=== PATIENT | female | born 1945 | race Caucasian/White ===

== ENCOUNTER → 2017-07-06 09:31 | Outpatient (CLI) | payer MEDICARE, OTHER, SELFPAY ==
--- NOTE | 2017-07-06 09:37 | HPBI_ITS ---
MAMMOGRAPHY - BILATERAL SCREENING REASON FOR EXAM: Female, 72 years old. Routine annual screening examination. PERTINENT HISTORY: Mother with breast cancer. TECHNIQUE: Digital bilateral breast nathalia (3D mammographic acquisition) in the CC and MLO projections. 2-D mediolateral oblique (MLO) and craniocaudad (CC) views of both breasts were obtained. CAD: Full Field Digital Mammography with Computer Added Detection was performed. COMPARISON: Comparison is made with prior study dated June 24, 2016 and May 16, 2015. FINDINGS: Breast Composition: There are scattered areas of fibroglandular density. There are no dominant masses or suspicious calcifications. No other significant abnormalities are identified. There has been no significant change since the prior study. HPBI/SCREENING MAMM (CAD), BILAT IMPRESSION: Stable bilateral screening mammogram. Yearly follow-up mammogram recommended. (A) ASSESSMENT CATEGORY: BIRADS Category 1: Negative. A letter regarding these results will be sent to the patient by the facility within 30 days. Approximately 10% of breast cancers are not detected by mammography. A normal mammogram should not delay biopsy of a clinically suspicious abnormality. [id number] Electronically Signed: Benjamin Mijares MD at 13:25 EST Tel [phone], Service support ,
== END ==
PROVIDERS: Family Provider Family Medicine; PCP Family Medicine; Visit Provider Family Medicine
DX: Z12.31 Encounter for screening mammogram for malignant neoplasm of breast (principal)
CPT/HCPCS: 77063; 77067

== ENCOUNTER 2017-10-13 07:03 | Inpatient (IN) | payer MEDICARE, OTHER, SELFPAY ==
[2017-09-25 15:08] VITALS: BP 137/82; PULSE 68; RESP 16; TEMP 36.6; O2SAT 97; BMI 33.5
--- NOTE | 2017-09-25 15:14 | SDCEKG_ITS ---
Test Reason : Blood Pressure : / mmHG Vent. Rate : 049 BPM Atrial Rate : 049 BPM P-R Int : 126 ms QRS Dur : 070 ms QT Int : 416 ms P-R-T Axes : 011 -12 019 degrees QTc Int : 375 ms Marked sinus bradycardia with sinus arrhythmia Minimal voltage criteria for LVH, may be normal variant Abnormal ECG Confirmed by YOUSUF YAÑEZ, ROZINA ([id number]), newspaper copy editor AUTUMN BAUMAN ([id number]) on 09/28/2017 1:44:29 PM Referred By: Addison Barr Confirmed By:ROZINA TO MD
[2017-09-25 15:50] LABS: Hematocrit 40.1 % (37-47); Hemoglobin 12.6 g/dl (12.0-15.0); Mean Corp Hgb Conc 31.4 g/gl (32-36); Mean Corpuscular Hgb 30.7 pg (27.0-32.0); Mean Corpuscular Volume 97.8 fL (81-99); Platelet Count 240 K/mm3 (150-450); RBC Distribution Width CV 14.1 % (11.6-14.6); RBC Distribution Width SD 49.1 fl (35.1-43.9)
[2017-09-25 16:05] LABS: Scan Indicated on CBC? Y/N NO
[2017-09-25 16:15] LABS: Anion Gap 6 (5-15); BUN 17 mg/dL (7-18); BUN/Creat Ratio 25.6 RATIO (10-20); Chloride 107 mmol/L (98-107); Creatinine, Serum 0.66 mg/dL (0.55-1.02); EST Glomerular Filtration Rate 93 mL/min (>60); Est Glom Filt Rate - Afr Amer 113 mL/min (>60); Estimated Creatinine Clearance 42.68 ml/min; Glucose 97 mg/dL (74-106); Potassium 4.1 mmol/L (3.5-5.1); Sodium Level 142 mmol/L (136-145)
--- NOTE | 2017-10-09 10:37 | CASEMGMT ---
ISSAC RODRÍGUEZ Pre-OP phone call. Message left re: purpose of call and call back information for ISSAC RODRÍGUEZ. Carolyn CALDERAN RN ACM
[2017-10-13] VITALS (10 sets, daily range): BP systolic 93–123; BP diastolic 49–85; PULSE 44–64; RESP 14–18; TEMP 35.8–36.9; O2SAT 95–100; BMI 33.5
[2017-10-13] MEDS: Lactated Ringers 1,000 ML 999 ML IV (07:10)
[2017-10-13] MEDS: Scopolamine 1mg/72hr Patch 1 PATCH TD (07:15)
--- NOTE | 2017-10-13 07:35 | PCM.HP.STD ---
Problem List (1) Urinary incontinence Status: Chronic History of Present Illness Date of Admission: 10/13/17 Chief Complaint: Left hip pain with limited range of motion. The patient is a 72 year old F severe left hip pain and limited range of motion. She has had a right total hip replacement in 2016 and is done well. She did have an intraoperative fracture. Concerning her left hip. Patient does have difficulty with sleeping at night. She reports start up pain. She reports pain in her groin. Pain is a 9 out of 10 with motion and prolonged standing or walking. She has difficulty with stairs. She has difficulty with activities of daily living including tying her shoes. She is failed conservative measures including anti-inflammatories and activity modifications. To my office to discuss direct anterior total hip replacement. Past Medical History Past Medical History (Chronic Problems): Chronic Problems Urinary incontinence (Chronic) Allergies No Known Allergies Allergy (Verified 09/25/17 14:51) Home Medications: Ambulatory Orders Medication Instructions Recorded Ascorbic Acid [Vitamin C] 2,000 mg PO DAILY@0800 05/29/15 Multivitamin [Daily Multiple 1 each PO DAILY 05/29/15 Vitamin] Niacin [Niacin ER] 500 mg PO DAILY 05/29/15 Oxybutynin [Ditropan] 15 mg PO DAILY 05/29/15 Pyridoxine HCl [Vitamin B-6] 200 mg PO DAILY 05/29/15 Turmeric [Turmeric Root] 500 gm MC BID 05/29/15 Ubidecarenone [Coenzyme Q10] 200 mg PO DAILY 05/29/15 Cholecalciferol (Vitamin D3) 2,000 unit PO DAILY 09/25/17 [Vitamin D3] Krill/Om-3/Dha/Epa/Phospho/Ast 1 each PO DAILY 09/25/17 [Krill Oil 1,000 mg Softgel] Magnesium Oxide [Magnesium] 500 mg PO BID 09/25/17 Surgical History: total hip arthroplasty - right 2016 Psychiatric History: No pertinent psych hx Lives: With Family Smoking Status: Never smoker Tobacco Use: Non-smoker Alcohol: Rare Drugs: None Review of Systems Constitutional: Denies: Chills, Fever, Weight Change HEENT: Denies: Head Aches, Sinus Congestion, Sinus Drainage Cardiovascular: Denies: Chest Pain, Palpitations Respiratory: Denies: Cough, Shortness of breath at rest, Sputum production Gastrointestinal: Denies: Abdominal Pain, Nausea, Vomiting Genitourinary: Reports: Incontinence. Denies: Dysuria Musculoskeletal: Reports: Joint Pain Skin: Denies: Rash, Wounds Neurological: Denies: Numbness, Tingling, Focal weakness Psychiatric: Denies: Anxiety, Depression, Homicidal Ideations, Suicidal Ideations Hematologic/ Lymphatic: Denies: Easy Bruising, Easy Bleeding VTE Information - Inpt Only VTE Present on Admission: No VTE Mechan Device Prophylaxis: SCD's, Thigh High ELAINE Hose VTE Pharm Prophylaxis ordered?: Yes Objective: Left hip radiographs reveal complete loss of joint space, subchondral sclerosis and osteophyte formation of the left hip - Physical Exam General: Alert, Oriented x3, Cooperative HEENT: Atraumatic Neck: No JVD Lungs: Normal air movement, - - Nonlabored breathing Cardiovascular: Regular rate Abdomen: Non-Distended Extremities: - - Left lower extremity with limited range of motion. Pain with internal and external rotation. Minimal tenderness over the greater trochanter. 5 out of 5 hip flexion. Sensations intact light touch saphenous, superficial peroneal, deep peroneal tibial nerve distributions. 5 out of 5 dorsiflexion EHL and plantar flexion. Good distal pulses. Skin: No rashes, No breakdown Musculoskeletal: Tenderness - Left hip Neurological: Cranial nerves II-XII grossly intact Psych/Mental Status: Normal Affect Vital Signs Temp Pulse Resp BP Pulse Ox 98 F 68 16 137/82 H 97 09/25/17 15:08 09/25/17 15:08 09/25/17 15:08 09/25/17 15:08 09/25/17 15:08 Oxygen Delivery Method Room Air Weight: 189 lb Body Mass Index (BMI) 33.5 Assessment/Plan Left hip osteoarthritis severe Patient has severe left hip osteoarthritis. She failed conservative measures. She done well with a right total hip replacement. At this time she wishes to proceed with left total hip replacement. Risks and benefits of the procedure were discussed the patient including but not limited to blood loss, DVTs, PEs, neurovascular damage, infection, general risk of anesthesia including loss of life, dislocations and leg length discrepancies. Patient also has a history of intraoperative fractures which were discussed. At this time patient wishes to proceed with left total hip replacement. Postoperative plan is also been discussed the patient. Patient is able to sign informed consent.
[2017-10-13] MEDS: Acetaminophen 500 MG Tablet 1000 MG PO ×3 (07:50→21:19)
[2017-10-13] MEDS: Celecoxib 200 MG Capsule 400 MG PO (07:51)
[2017-10-13] MEDS: oxyCODONE HCl Cr 10 MG Tablet PO (07:51)
--- NOTE | 2017-10-13 09:25 | RAD_ITS ---
STUDY: X-RAY - PELVIS AND LEFT HIP REASON FOR EXAM: Female, 72 years old. Left hip replacement. TECHNIQUE: Radiological exam, hip, unilateral, with pelvis when performed; 1 view COMPARISON: None. FINDINGS: Intraoperative imaging provided for left hip replacement. RAD/Hip 1 view with Pelvis IMPRESSION: Intraoperative imaging provided for left hip replacement. Electronically Signed: Benjamin Mijares MD at 14:54 EDT Tel [phone], Service support ,
[2017-10-13] MEDS: Cefazolin 2 GM in 0.9% Normal Saline 100 ML IV (10:08)
--- NOTE | 2017-10-13 11:08 | PCM.OPRPT ---
Problem List (1) Urinary incontinence Status: Chronic Report of Operation Date of Procedure: 10/13/17 Pre-Operative Diagnosis: L hip primary OA Post-Operative Diagnosis: L hip primary OA Surgery/Procedure Performed:: L RICHA Description of Surgical Findings:: Stable hip with equal leg lengths senior capital markets specialist: Khalif Sommer Type of Anesthesia:: Spinal Anesthesiologist: Mahesh Rivera Special Medications: 2 g Ancef, 1 g TXA at incision, 1 g TXA closure, 10 mg Decadron, joint cocktail (5 mg Duramorph, 30 mL of 0.5% Ropivicaine, 1000 units of epinephrine, 30 mg of Toradol) Specimen's removed: Bony cuts Estimated Blood Loss (mL): 250 Fluids Replaced: 1900 ml crystalloid Description of Procedure: Components used: 1. Accolade 2 Maria R femoral stem size 4 127? 2. Maria R trident acetabular shell size 50 mm 3. Rowe X3 polyethylene 4. Maria R Biolox delta 36mm, -5mm femoral head Brief history operative indications: 72 yo f who failed conservative measures for their hip osteoarthritis. X-rays were consistent with osteoarthritis including joint space narrowing, osteophyte formation and subchondral cysts. Total hip replacement was discussed with the patient with risks and benefits including but not limited to blood loss, DVTs, PEs, neurovascular damage, dislocation, general risks of anesthesia including loss of life. Patient demonstrated an understanding medical clearance is obtained the patient was consented for surgery. Procedure: On the date of procedure the patient's L hip was marked in the preoperative area. Patient was then taken back to the operating room where anesthesia assumed control of the C-spine and airway and administered anesthetic. Patient was transferred to the operating table and placed in the supine position. The hips were placed at the break of the bed and a sacral bump was placed. The L lower extremity was then prepped out in a sterile fashion using chlorhexidine while the surgeon scrubbed. The PA was vital in the positioning of the patient. Upon reentering the room the L lower extremity was draped in the standard orthopedic fashion and the incision was marked. A timeout was called and everyone agreed upon the side, the site, the procedure be performed, antibody given, and patient's identity. At this time incision was made through skin, subcutaneous tissue, and fat down to fascia. The fascia was then incised and the TFL was retracted laterally. A retractor was placed on the lateral border of the femoral neck. Attention was directed to the inferior portion of the approach and all crossing vessels were identified and appropriately coagulated. A retractor was then placed on the medial portion of the femoral neck. The anterior capsule was then cleared of all soft tissue and then H shaped capsulotomy was made. The retractors were then placed inside the capsule. The femoral neck was identified and a cleanup cut was made. At this time a power corkscrew was used to remove the femoral head. Attention was then turned toward the acetabulum where the soft tissues were appropriately retracted and the acetabulum was sequentially reamed to 49 mm. A 50 mm cup was then selected and impacted into place. Acetabular liner was impacted into place and locking mechanism was verified. The position of the acetabular cup was then verified under live fluoroscopy. Attention was then turned to the femur. Soft tissue releases on the medial and lateral femoral neck were appropriately done, the leg was externally rotated and lateralized. A Vides retractor was placed medially and proximally to the greater trochanter this allowed appropriate visualization and exposure of the femoral canal. Rongeour was then used to remove excess lateral bone. A canal finder and entry broach were used to open the proximal canal. Once we verified we were down the femoral canal we subsequently broached up to a size 4 femur. The appropriate neck was placed in the previously selected head was trialed with a -5 mm neck. Traction was pulled and the hip was reduced with internal rotation. Once it was appropriately reduced and stability was checked. There was minimal shuck, equal leg lengths and appropriate stability with hyperextension and external rotation as well as with 90? flexion and internal rotation. Fluoroscopy was then also used to verify the position of the components and leg lengths using the contralateral side for comparison. The trial components were then dislocated the proximal femur was again exposed and the components were removed from the wound. The final components were verified and opened. The wound was copiously irrigated out with normal saline. The acetabulum was checked for any residual debris. The final components were placed and impacted. Traction and internal rotation were again used to reduce the hip. After adequate reduction the hip remained stable with appropriate leg lengths. The final components were once again checked with live fluoroscopy and were found to be satisfactory. The wound was then copiously irrigated with normal saline once more, and hemostasis was obtained. Closure was then done using #1 Vicryl runner to close the fascia. A 2-0 vicryl interuppted sutures were used to close the subcutaneous skin. A 3-0 Monocryl and Steri-Strips were used for final skin closure. A Silverlon dressing was placed. Patient was awakened by anesthesia and transferred to the [facility]. Patient was then transferred to the PACU for recovery. Postoperative plan: Patient will get 24 hours postop antibiotics. Patient will get in-house physical therapy and will be weight-bear as tolerated. Patient will follow up in office in 2 weeks for a wound check and x-rays. During the course of the procedure the physician hospital nursing assistant played a vital role. His intimate knowledge of my steps in the procedure aided in safe and expedient completion of the procedure. The PA played a vital rolls in positioning particularly in obtaining the appropriate positioning of the sacral bump. The PA was also vital in the retraction of soft tissues during the exposure and especially the femoral work as this is a vital part of the procedure to prevent complications and fractures. The PA was also vital and protecting soft tissues during times of bony cuts and reaming. He also played a vital role in closure with my direct supervision. The PA was also important during reduction and dislocation of the joint and trials intraoperatively. Grafts/Implants Used: Rowe - Complications none - Admit VTE Documentation VTE Present on Admission: No VTE Mechan Device Prophylaxis: SCD's, Thigh High ELAINE Hose VTE Pharm Prophylaxis ordered?: Yes
--- NOTE | 2017-10-13 12:00 | RAD_ITS ---
STUDY: X-RAY - PELVIS AND LEFT HIP REASON FOR EXAM: Female, 72 years old. Left] placement. TECHNIQUE: Radiological exam, hip, unilateral, with pelvis when performed; 2 or 3 views. COMPARISON: None. FINDINGS: The patient is status post left total hip replacement. There is good alignment. Postoperative soft tissue changes. RAD/Hip Min 2 Views (Portable) IMPRESSION: Status post left total hip replacement. There is good alignment. Postoperative soft tissue changes. Electronically Signed: Benjamin Mijares MD at 15:29 EDT Tel [phone], Service support ,
[2017-10-13] MEDS: Niacin SA 500 MG Tablet PO (14:20)
[2017-10-13] MEDS: Famotidine 20 MG Tablet PO (14:20)
[2017-10-13] MEDS: Lactated Ringers 1,000 ML 125 ML IV ×2 (14:21→21:22)
[2017-10-13] MEDS: Aspirin 325 MG Tablet PO (14:21)
[2017-10-13] MEDS: Cefazolin 1 GM/50 ML BAG IV (17:20)
[2017-10-13] MEDS: Senna/Docusate Sodium 1 Tablet 2 TABLET PO (21:20)
[2017-10-13] MEDS: Magnesium Oxide 400 MG Tablet PO (21:20)
[2017-10-14] MEDS: Cefazolin 1 GM/50 ML BAG IV (02:11)
[2017-10-14 04:19] VITALS: BP 111/56; PULSE 56; RESP 16; TEMP 36.7; O2SAT 97
[2017-10-14 05:49] LABS: Hemoglobin 10.4 g/dl (12.0-15.0); Mean Corp Hgb Conc 30.6 g/gl (32-36); Mean Corpuscular Hgb 30.4 pg (27.0-32.0); Mean Corpuscular Volume 99.4 fL (81-99); Mean Platelet Vol. 9.9 fl (6.2-12.0); Platelet Count 182 K/mm3 (150-450); RBC Distribution Width CV 14.1 % (11.6-14.6); RBC Distribution Width SD 49.8 fl (35.1-43.9); Red Blood Count 3.42 M/mm3 (4.2-5.4); White Blood Count 8.8 K/mm3 (4.4-11.0)
[2017-10-14 06:00] LABS: Anion Gap 5 (5-15); BUN 11 mg/dL (7-18); BUN/Creat Ratio 15.2 RATIO (10-20); Calcium,Total 8.3 mg/dL (8.5-10.1); Chloride 112 mmol/L (98-107); Creatinine, Serum 0.72 mg/dL (0.55-1.02); EST Glomerular Filtration Rate 85 mL/min (>60); Est Glom Filt Rate - Afr Amer 102 mL/min (>60); Estimated Creatinine Clearance 42.68 ml/min; Glucose 137 mg/dL (74-106); Potassium 4.3 mmol/L (3.5-5.1); Sodium Level 147 mmol/L (136-145)
[2017-10-14 06:06] LABS: Scan Indicated on CBC? Y/N NO
[2017-10-14] MEDS: oxyCODONE 5 MG Tablet PO ×3 (06:16→14:19)
[2017-10-14] MEDS: Acetaminophen 500 MG Tablet 1000 MG PO ×2 (06:16→14:04)
--- NOTE | 2017-10-14 07:16 | PN.ORTHO_ITS ---
Subjective: The patient was sitting in bedside chair upon examination. Patient denies any chest pain, shortness of breath, dizziness, lightheadedness, nausea or vomiting , or calf pain. Pain is controlled on medications. No adverse overnight events. Overall patient is doing well. She does report soreness in the left thigh region. Patient has outpatient physical therapy scheduled. Objective: Vital signs stable and afebrile. Patient is able to plantarflex and dorsiflex actively. Sensation is intact to light touch to saphenous, sural, superficial and deep peroneal, and tibial distribution. Dressing is with minimal drainage Negative Homans bilaterally, negative signs and symptoms of DVT. - Physical Exam General: Alert, Oriented x3, Cooperative, No apparent distress Vital Signs Temp Pulse Resp BP Pulse Ox 98.1 F 56 L 16 111/56 L 97 10/14/17 04:19 10/14/17 04:19 10/14/17 04:19 10/14/17 04:19 10/14/17 04:19 Oxygen Delivery Method Room Air Weight: 85.7 kg Body Mass Index (BMI) 33.5 Intake and Output for Last 24 Hours 10/12/17 10/13/17 10/14/17 23:59 23:59 23:59 Intake Total 3425 / 3425 1575 / 1575 Output Total 1200 / 1200 Balance 2225 / 2225 1575 / 1575 Laboratory Tests Past 24 Hrs 10/14/17 10/14/17 05:06 05:06 WBC 8.8 RBC 3.42 L Hgb 10.4 L Hct 34.0 L MCV 99.4 H MCH 30.4 MCHC 30.6 L RDW 14.1 RDW Differential 49.8 H Plt Count 182 MPV 9.9 Sodium 147 H Potassium 4.3 Chloride 112 H Carbon Dioxide 30.0 Anion Gap 5 BUN 11 Creatinine 0.72 Estim Creat Clear Calc 42.68 Est GFR (MDRD) Af Amer 102 Est GFR (MDRD) Non-Af 85 BUN/Creatinine Ratio 15.2 Glucose 137 H Calcium 8.3 L Medical Necessity - Tobacco Use Smoking Status: Never smoker Tobacco Use: Non-smoker Assessment/Plan 1. S/P left direct anterior total hip arthroplasty POD #1 2. Continue Pain Medications: Tylenol and OxyIR 3. DVT Prophylaxis: Aspirin 325 mg twice daily 4. PT/OT: Weightbearing as tolerated 5. H & H: 10.4/34.0, asymptomatic 6. Encouraged Incentive Spirometry 7. Disposition: Plan is for possible discharge home today if patient tolerates physical therapy and pain continues to be well controlled. Prescriptions will be E scribed to [facility]. Patient will follow-up per postop instructions.
--- NOTE | 2017-10-14 07:24 | PCM.DC.THR ---
Discharge Diet: No Restrictions Discharge Activity: May Not Drive - while taking narcotic pain medications. May shower in (days): 1 - Turned dressing away from water Ice area for (Minutes): 20 - Every 1-2 hours while awake Weight Bearing Status: Weight bearing as tolerated Elevate: Operative Extremity Additional Activity Instructions:: Wear elastic stockings for 2 weeks. DO NOT use alcohol with narcotic pain medication. DO NOT make important decisions while taking narcotic medication. If you have problems with taking your medication (rash, itching, nausea, etc.) call the office at once. Call your doctor if your incision/area has: Increased Pain/ Swelling, Increased Redness, Foul Smelling Discharge Call your doctor if you observe: Fever of 101 or Higher Remove Dressing in (days):: 4 - Okay to remove on October 18, 2017 Additional Instructions: Follow [facility] postop instructions Do not take vitamins and supplements for [address] washcloth between skin fold near incision to keep clean and dry until incision is well-healed Allergies/Adverse Reactions: Allergies No Known Allergies Allergy (Verified 09/25/17 14:51) Medications to take at Discharge Ascorbic Acid [Vitamin C] 2,000 mg PO DAILY@0800 05/29/15 Multivitamin [Daily Multiple Vitamin] 1 each PO DAILY 05/29/15 Niacin [Niacin ER] 500 mg PO DAILY 05/29/15 Oxybutynin [Ditropan] 15 mg PO DAILY 05/29/15 Pyridoxine HCl [Vitamin B-6] 200 mg PO DAILY 05/29/15 Cholecalciferol (Vitamin D3) [Vitamin D3] 2,000 unit PO DAILY 09/25/17 Magnesium Oxide [Magnesium] 500 mg PO BID 09/25/17 Acetaminophen [Tylenol] 1,000 mg PO Q8 #90 tab 10/14/17 Aspirin 325 mg PO BIDCM #30 tab 10/14/17 Famotidine [Pepcid] 20 mg PO DAILY #30 tab 10/14/17 Oxycodone [Oxyir] 5 - 10 mg PO Q4H PRN PRN 5 Days #60 tablet 10/14/17 Senna/Docusate Sodium [Senokot-S] 2 tab PO BID #20 tab 10/14/17 The following prescriptions were given: Oxycodone [Oxyir] 5 - 10 mg PO Q4H PRN PRN 5 Days #60 tablet PRN Reason: Mod-Severe Pain (4-03/03) Acetaminophen [Tylenol] 1,000 mg PO Q8 #90 tab Famotidine [Pepcid] 20 mg PO DAILY #30 tab Aspirin 325 mg PO BIDCM #30 tab Senna/Docusate Sodium [Senokot-S] 2 tab PO BID #20 tab Primary Care Physician: Lisy Rangel MD [Primary Care Provider] - Please Follow Up With: [facility] When: 10/16/17 @ 11:00 am Please Follow Up With: Rogers Daigle MD When: 10/26/17 @ 11:00 am
[2017-10-14 08:20] VITALS: BP 109/55; PULSE 66; RESP 18; TEMP 37.1; O2SAT 96
[2017-10-14] MEDS: Aspirin 325 MG Tablet PO (08:25)
[2017-10-14] MEDS: Ascorbic Acid 500 MG Tablet 2000 MG PO (08:25)
[2017-10-14] MEDS: Multivitamins,Therapeutic Tablet 1 TABLET PO (08:26)
[2017-10-14] MEDS: Niacin SA 500 MG Tablet PO (10:05)
[2017-10-14] MEDS: Famotidine 20 MG Tablet PO (10:05)
[2017-10-14] MEDS: Tolterodine Tartrate 4 MG CAP.SA PO (10:05)
[2017-10-14] MEDS: Magnesium Oxide 400 MG Tablet PO (10:05)
[2017-10-14] MEDS: Senna/Docusate Sodium 1 Tablet 2 TABLET PO (10:06)
--- NOTE | 2017-10-14 11:07 | CASEMGMT ---
ISSAC RODRÍGUEZ Face to Face with patient for initial transition planning/care coordination assessment. RN MARCOS introduced self and role at [facility]. Patient sitting in chair, alert and oriented. Patient willing to participate in assessment and is able to answer all questions appropriately. Care providers, pharmacy, and demographics verified. See link attached. Patient wishes to discharge home and is setup with outpatient therapy at [facility] with providing transportation . Patient states she has no further needs or concerns at this time. CM to follow for discharge planning needs that may arise. Disposition Plan: Patient to discharge home with outpatient therapy, family support, and follow-up plans in place.
[2017-10-14 14:06] VITALS: BP 106/55; PULSE 77; RESP 18; TEMP 36.7; O2SAT 98
--- NOTE | 2017-10-14 14:12 | CHAPLAIN ---
Type of Pastoral Visit _x__ Initial Visit ___ Follow-up Visit ___ On-call Visit ___ General Patient Visit ___ Spiritual Assessment ___ Family Conference ___ Bereavement ___ Rapid Response ___ Code Blue ___ Other (describe below) Pastoral Care Referral From _x__ Patient ___ Family ___ Nurse ___ Physician ___ Tailor Fitter ___ Statistical Consultant ___ Other (describe below) Sacrament/Intervention _x__ Active listening ___ Anointing ___ Roman Catholic ___ Bereavement ___ Communion ___ Alyssia exploration ___ ___ Life review _x__ Prayer ___ Reconciliation ___ Sacrament of Sick ___ Supportive presence ___ Wedding ___ Other (describe below) Pastoral Comments
--- NOTE | 2017-10-14 15:52 | NURSING ---
PT'S UNABLE TO GET SCRIPT FILLED AT [facility] BECAUSE THEY ONLY HAD 18 OXYIR AND THEY WOULD NOT BE ABLE TO COMPLETE THE ORDER- CALLED [facility] AND TOLD THEM- DR HURST AND FLO Lamb ARE BOTH SCRUBBED AND IN SURGERY FOR THE NEXT 2 HRS- THEY WILL TALK WITH PT AFTER SURGERY AND PT WOULD LIKE SCRIP SENT TO [facility] -
== END 2017-10-14 15:53 | disposition home or self-care (01) | DRG 470 ==
LOC: MS3 07:04
PROVIDERS: Orthopaedic Surgery; Admitting Provider Specialist; Family Provider Family Medicine; PCP Family Medicine; Visit Provider Specialist
PROC: 0SRB04Z Replacement of Left Hip Joint with Ceramic on Polyethylene Synthetic Substitute, Open Approach (ICD-10-PCS; CPT 27284; principal; 2017-10-13 09:00)
DX: M16.12 Unilateral primary osteoarthritis, left hip (principal); R32 Unspecified urinary incontinence; Z96.641 Presence of right artificial hip joint; Z79.899 Other long term (current) drug therapy
CPT/HCPCS: 36415; 73501; 73502; 76000; 80048; 85027; 87081; 97162; 97165; 97530; 97535; 99251; C1776; J7120; G0463

== ENCOUNTER → 2018-10-11 | Outpatient (CLI) | payer MEDICARE, OTHER, SELFPAY ==
[2018-10-11 14:10] VITALS: BMI 33.5
[2018-10-11 15:43] LABS: Hematocrit 41.3 % (37-47); Hemoglobin 13.1 g/dl (12.0-15.0); Mean Corp Hgb Conc 31.7 g/gl (32-36); Mean Corpuscular Volume 91.4 fL (81-99); Mean Platelet Vol. 10.7 fl (6.2-12.0); Platelet Count 308 K/mm3 (150-450); RBC Distribution Width CV 14.4 % (11.6-14.6); RBC Distribution Width SD 48.1 fl (35.1-43.9); Red Blood Count 4.52 M/mm3 (4.2-5.4); Scan Indicated on CBC? Y/N NO; White Blood Count 11.3 K/mm3 (4.4-11.0)
[2018-10-11 16:16] LABS: ALB/GLOB Ratio 0.8 RATIO (0.9-2.4); AST(SGOT) 34 U/L (15-37); Alanine Aminotransfer ALT/SGPT 18 U/L (13-56); Albumin, Serum 3.4 g/dL (3.2-5.0); Alkaline Phosphatase 103 U/L (45-117); Anion Gap 7 (5-15); BUN 8 mg/dL (7-18); Chloride 105 mmol/L (98-107); Creatinine, Serum 0.72 mg/dL (0.55-1.02); EST Glomerular Filtration Rate 84 mL/min (>60); Est Glom Filt Rate - Afr Amer 102 mL/min (>60); Globulin 4.2 g/dL (2.2-4.2); Glucose 112 mg/dL (74-106); Potassium 3.4 mmol/L (3.5-5.1); Protein, Total 7.6 g/dL (6.4-8.2); Sodium Level 142 mmol/L (136-145)
== END | disposition home or self-care (01) ==
PROVIDERS: Family Provider Family Medicine; PCP Family Medicine; Referring Provider Surgery; Visit Provider Surgery
DX: R10.9 Unspecified abdominal pain (principal)
CPT/HCPCS: 80053; 85027

== ENCOUNTER → 2018-10-12 | Outpatient (CLI) | payer MEDICARE, OTHER, SELFPAY ==
[2018-10-11 14:10] VITALS: BMI 33.5
--- NOTE | 2018-10-12 16:18 | CT_ITS ---
STUDY: CT ABDOMEN AND PELVIS WITH CONTRAST REASON FOR EXAM: Female, 73 years old. Abdominal pain, umbilical hernia times years RADIATION DOSAGE (If Supplied By Facility): CTDIvol = ( 17.79 ) mGy, DLP = ( 1172.41 ) mGycm TECHNIQUE: Transaxial images were obtained from the dome of the diaphragm to the symphysis pubis without oral contrast. 100 IV/Oral Isovue 300 was administered. Sagittal and coronal images were reconstructed. Individualized dose optimization techniques were used for this CT. COMPARISON: None. FINDINGS: There is a pleural-based 3 mm right lower lobe nodule image 1 of series 4. The visualized portions of the heart are within normal limits. There are multiple scattered hepatic hypodensities measuring up to 1.1 cm. Normal gallbladder and extrahepatic biliary system. Normal spleen. Normal pancreas. Normal bilateral adrenal glands. There is a 3.5 x 3.1 cm right renal cyst. Normal left kidney. Normal visualized stomach. Normal small intestine. There is a cecal mass measuring approximately 6.4 x 6.8 x 6.8 cm. There are multiple adjacent enlarged mesenteric nodes. There is sigmoid diverticulosis with no evidence of associated diverticulitis. There is non-visualization of the appendix. There are calcified plaques of the abdominal aorta. Normal inferior vena cava. There are scattered shotty retroperitoneal nodes. Normal urinary bladder. There is a tiny amount of free fluid in the deep right pelvis. Evaluation of pelvic organs is limited due to scanning artifact caused by bilateral hip implants. There is a dumbbell shaped mass of the anterior pelvis extending into the left paraumbilical subcutaneous soft tissues. This mass contains fat, and measures approximately 8.7 x 5.4 x 7.9 cm. There are large bilateral fat-containing inguinal hernias. There is a minimal grade 1 anterolisthesis of L4 relative to L5. Bilateral hip replacements are noted. CT/Abdomen/Pelvis WITH Contrast IMPRESSION: 1. Cecal mass measuring approximately 6.4 x 6.8 x 6.8 cm. Findings are highly suspicious for malignancy. There are multiple adjacent enlarged mesenteric nodes. 2. There is a dumbbell shaped 3. mass of the anterior pelvis extending into the left periumbilical subcutaneous soft tissues. This mass contains fat and measures approximately 8.7 x 5.4 x 7.9 cm. This may represent indurated omental fat. 4. There are multiple scattered hepatic hypodensities measuring up to 1.1 cm, raising the suspicion of metastatic disease. 5. There are scattered shotty retroperitoneal nodes. 6. There is a tiny amount of free fluid in the deep right pelvis. 7. Bilateral hip implants. Minimal grade 1 anterolisthesis of L4 relative to L5. 8. Large bilateral fat-containing inguinal hernias. Electronically Signed: Judson Pearson MD at 17:11 EDT , Service support ,
== END | disposition home or self-care (01) ==
LOC: CT 16:17
PROVIDERS: Family Provider Family Medicine; PCP Family Medicine; Referring Provider Surgery; Visit Provider Surgery
DX: R10.9 Unspecified abdominal pain (principal); R19.00 Intra-abdominal and pelvic swelling, mass and lump, unspecified site
CPT/HCPCS: 74177; Q9967

== ENCOUNTER 2018-10-15 06:45 | Day surgery (SDC) | payer MEDICARE, OTHER, SELFPAY ==
[2018-10-11 14:10] VITALS: BMI 33.5
[2018-10-15] VITALS (11 sets, daily range): BP systolic 95–141; BP diastolic 43–80; PULSE 71–85; RESP 16; TEMP 36.1–36.8; O2SAT 92–100; BMI 27.3
--- NOTE | 2018-10-15 | IMM_PTH ---
PATIENT: TANNER DAVALOS LOC: EN U#:[id number] AGE/SX: 73/F ROOM: RE10/15/[address]: Dr. Magdiel Denny MD : 1945 BED: DIS: 10/15/2018 SPEC #: [id number] RECD: 10/19/18 11:47 STATUS: WALI REQ #: [id number] CRUZ: 10/15/18 00:[address]: Magdiel Denny DEPT: IMMUNOHISTOCHEMISTRY RECD BY: Jennifer Olguin ENTERED: 10/19/18 11:49 SP TYPE: IMMUNO OTHR DR: Dr. Lisy Rangel MD Tissues: A - Cecum, NOS Procedures: Synapto (add) CD56 (add) CEA (add) CHROMO (add) CK19 (add) CK20 (add) CK7 (add) CK8 (add) KI-67 (add) P53 (add) Vimentin (add) NEUROFIL (add) Pankeratin (initial) CDX2 (add) NSE (add) PHYSICIAN & [place] [id number] SPECIMEN INFORMATION: Tissue Source: A - Cecal mass Clinical Info: Abdominal mass right upper quadrant Specimen Number: [id number] CPT code: 26292, 22986 x14 METHODOLOGY: Deparaffinized sections of prefer/formalin-fixed tissue or PAP/DQ stained slides are incubated with monoclonal/polyclonal antibodies/oligonucleotide probes. Localization is made via biotin free immunoperoxidase method. Appropriate controls are performed and reacted as expected. Results on target cell population are indicated in the following table: RESULTS: ANTIBODY / CLONE RESULT Block A AE1-3 (AE1/AE3/PCK26) positive CK7 (OV-TL12/30) negative CK8 (86ywizW57) positive CK20 (KS20.8) positive, focal Vimentin (V9) negative CK19 (A53-B/A2.26) positive CD56 (123C3.D5) positive Chromo (LK2H10) positive Synapto (polyclonal) positive Neurofil (2F11) negative NSE Neuron Specific Enolase positive CDX2 ([id number]) positive Ki-67 (30-9) positive, >50% CEA (11-7/TF-3HB-1) positive P53 (DO-7) positive, 80%, moderate intensity These tests were developed and their performance characteristics determined by [facility]. They may not have been cleared or approved by the U.S. Food and Drug Administration. The FDA has determined that such clearance or approval is not necessary. INTERPRETATION: A. Cecal mass, biopsy: Neuroendocrine carcinoma. AM:steve 10/20/18 Comment: An upper GI primary including pancreas is a possibility. Clinical correlation is necessary.
--- NOTE | 2018-10-15 | COLBX_PTH ---
PATIENT: TANNER DAVALOS LOC: EN U#:[id number] AGE/SX: 73/F ROOM: RE10/15/[address]: Dr. Magdiel Denny MD : 1945 BED: DIS: 10/15/2018 SPEC #: [id number] RECD: 10/15/18 12:24 STATUS: WALI JANE #: [id number] CRUZ: 10/15/18 00:[address]: Magdiel Denny DEPT: SURGICAL PATHOLOGY RECD BY: Ty Hyaes ENTERED: 10/15/18 12:25 SP TYPE: COLON BX OTHR DR: Dr. Lisy Rangel MD Tissues: A - Cecum, NOS B - COLON BIOPSY Procedures: Surgery Specimen Level IV HEADER OPERATION: Colonoscopy (MOD) PRE-OP DIAGNOSIS: Ventral incisional hernia, abdominal mass right upper quadrant TISSUE SUBMITTED: A - Cecal mass, B - Polyp hepatic flexure MICROSCOPIC DIAGNOSIS A. Cecal mass, biopsy: Neuroendocrine carcinoma. See comment. B. Colonic polyp at hepatic flexure, biopsy: Fragments of tubular adenoma. AM:steve 10/19/18 COMMENT A. Immunohistochemistry ([id number]) supports the above diagnosis. A lower gastrointestinal primary is favored. Clinical correlation is suggested. MICROSCOPIC DESCRIPTION Slides are reviewed. GROSS DESCRIPTION A - Received in fixative is one container labeled with the patient's name and designated cecal mass. The specimen consists of multiple irregular fragments of light gtz soft tissue that in aggregate measure 1.5 x 0.5 x 0.1 cm. The specimen is totally submitted in one cassette. B - Received in fixative is one container labeled with the patient's name and designated hepatic flexure. The specimen consists of multiple irregular fragments of light gtz soft tissue that in aggregate measure 0.6 x 0.6 x <0.1 cm. The specimen is totally submitted in one cassette. / AM:steve 10/15/18 TC:0 CPT: 47291 x2
--- NOTE | 2018-10-15 05:32 | PCM.HP.BLA ---
Problem List (1) Abdominal mass, right upper quadrant Status: Acute History and Physical Date of Admission: 10/15/18 MR#: [id number] Acct: [id number] Name: TANNER DAVALOS Rep #: [id number] : 1945 Provider: Magdiel Denny MD Age/Sex: 73/F Location: [facility] [place] Status: Signed with Addenda ADDENDUM by Magdiel Denny MD on 10/13/18 at 1643 Addendum entered and electronically signed by Magdiel Denny MD 10/13/18 16:43: October 13, 2018 On this patient's office visit I detected what I thought was a right mid abdominal mass. She certainly has a sizable incarcerated incisional ventral periumbilical hernia. But my clinical exam detected something on the right. I recommended a CT scan. This demonstrates a significant amount of omentum incarcerated within the ventral hernia however there appears to be a mass within the cecum. The patient had presented to me in anticipation of repairing her ventral hernia. We have discussed with her recommendations to convert to performing a bowel prep preparation and performing a colonoscopy with possible biopsy or polypectomy as indicated. She has had an opting to ask and have questions answered. We will schedule and expedite her care as appropriate. Magdiel Denny M.D., F.A.C.S. Intake Allergies No Known Allergies Allergy (Verified 10/11/18 14:05) Medications Ascorbic Acid [Vitamin C] 2,000 mg PO DAILY@0800 05/29/15 [History Confirmed 10/11/18] Multivitamin [Daily Multiple Vitamin] 1 ea PO DAILY 05/29/15 [History Confirmed 10/11/18] Cholecalciferol (Vitamin D3) [Vitamin D3] 2,000 unit PO DAILY 09/25/17 [History Confirmed 10/11/18] Aspirin 325 mg PO BIDCM #30 tab 10/14/17 [Rx] Oxycodone [Oxyir] 5 - 10 mg PO Q4H PRN PRN 5 Days #60 tab 10/14/17 [Rx Confirmed 10/11/18] Senna/Docusate Sodium [Senokot-S] 2 tab PO BID #20 tab 10/14/17 [Rx Confirmed 10/11/18] oxybutynin chloride 5 mg tablet 5 mg PO BID tab 10/11/18 [History Confirmed 10/11/18] Assessment & Plan Problems 1. Irreducible ventral incisional hernia K43.0 2. Abdominal mass, right upper quadrant R19.01 Plan - Magdiel Denny MD 73-year-old female. Her clinical findings suggest a significantly incarcerated ventral incisional hernia at the umbilicus. Findings would suggest a significant amount of incarcerated omentum with thinning of the umbilical skin and slight erythema but no signs of overt cellulitis or infection. On clinical exam I am detecting a mass in the right abdomen. I cannot decipher whether this is simple renal enlargement or possible liver less likely bowel. I am recommending that we obtain a complete metabolic profile and a CBC. I would like to obtain a CT scan of the abdomen pelvis. We will expedite that for her. I would then like her to return the office. I definitely recommend repair of her incarcerated ventral hernia. This may be able to be accomplished to a direct approach but could require resection of the incarcerated tissue and then conversion to a laparoscopic approach. I have had an opportunity to discuss the potential but will have the patient return to the office subsequent to her CT for final planning. I very much appreciate the kind opportunity of assisting with her surgical care CC: Dr. Lisy Denny M.D., F.A.C.S. Orders Orders: Comprehensive Metabolic Profil 10/11/18 R10.9 Abdomen/Pelvis WITH Contrast 10/12/18 R10.9, R19.00 CBC-Complete Blood Cnt No Diff 10/11/18 R10.9 10/13/18 1643 <Electronically signed by Magdiel Denny MD> Date Magdiel Denny MD cc: Lisy Rangel MD ~* Signed Intake Vital Signs 10/11/18 Body Mass Index (BMI) 33.5 10/11/18 Height 5 ft 4 in 10/11/18 Weight: 169 lb 10/11/18 Body Mass Index (BMI) 29.0 10/11/18 Blood Pressure 127/78 H 10/11/18 Blood Pressure Location Rt brachial 10/11/18 Blood Pressure Position Sitting 10/11/18 Respiratory Rate 18 10/11/18 Pulse Rate 93 10/11/18 Pulse Source Monitor 10/11/18 Temperature 98.1 F 10/11/18 Temperature Source Oral 10/11/18 Pulse Ox 93 10/11/18 Oxygen Delivery Method room air Intake Visit Reasons: Umbilical Hernia - Self Ref Chief Complaint: postop [employer] Required: No Is patient in pain?: No Allergies No Known Allergies Allergy (Verified 10/11/18 14:05) Medications Ascorbic Acid [Vitamin C] 2,000 mg PO DAILY@0800 05/29/15 [History Confirmed 10/11/18] Multivitamin [Daily Multiple Vitamin] 1 ea PO DAILY 05/29/15 [History Confirmed 10/11/18] Cholecalciferol (Vitamin D3) [Vitamin D3] 2,000 unit PO DAILY 09/25/17 [History Confirmed 10/11/18] Aspirin 325 mg PO BIDCM #30 tab 10/14/17 [Rx] Oxycodone [Oxyir] 5 - 10 mg PO Q4H PRN PRN 5 Days #60 tab 10/14/17 [Rx Confirmed 10/11/18] Senna/Docusate Sodium [Senokot-S] 2 tab PO BID #20 tab 10/14/17 [Rx Confirmed 10/11/18] oxybutynin chloride 5 mg tablet 5 mg PO BID tab 10/11/18 [History Confirmed 10/11/18] PFSH Medical History Urinary incontinence (Chronic) Umbilical hernia (Acute) irregular bowel patterns (Acute) Surgical History History of total bilateral knee replacement (Acute) Family History Mother Breast cancer Social History Smoking Status: Never smoker alcohol intake: never substance use type: does not use HPI HPI HPI: TANNER DAVALOS, is a 73 F who presents to the office today for surgical consultation regarding an umbilical hernia. The patient states that she is self-referred. It is been present for at least 2 years. She presumes that it is an umbilical hernia. She does go on to describe that in [address] Iker Franco for a right hip replacement and then 2017 she had a left hip replacement performed by Dr. Daigle.. Since that time she has had sciatica and L2-3-4 and 5 impingement. She has been treated by Dr. Aviles pain specialty. She had some problems with bowel control and urinary control. Her most recent colonoscopy was June 2016 and there was biopsy of hepatic flexure lesion performed by Dr. Christian Emerson and that was fragments of hyperplastic polyp. She does remember that she had a small transverse incision at the umbilicus but she thought that was simply for a fatty mass. She does not have good recollection regarding that procedure. She denies nausea or vomiting or fever or chills or sweats or bright red blood per rectum or melena. She has not had any drainage at the umbilicus. HPI HPI HPI: TANNER DAVALOS, is a 73 F who presents to the office today for ROS General General: Yes weight change and fatigue; no appetite, colon cancer, breast cancer or weakness HEENT HEENT: No difficulty swallowing, eye injury, eye surgery, swollen glands or hoarseness Endo Endocrine: No thyroid disease, diabetes mellitus, thyroid cancer, Hair loss, heat intolerance or cold intolerance Skin Skin: No rash or changing moles Breast Breast: No left breast lump, right breast lump, nipple discharge, breast pain, abnormal mammogram, abnormal US or breast enlargement Musc Musculoskeletal: Yes arthritis; no back problems, rheumatoid arthritis, gout or joint pain Cardio Cardiovascular: No murmur, pacemaker, heart disease, atrial fibrillation, high blood pressure, heart attack, heart stent, palpitations, shortness of breat with exertion or chest pain Psych Psychiatric: No depression, anxiety or hearing voices Resp Respiratory: No shortness of breath, No sleep apnea, No cough, No COPD, No asthma, No emphysema, No wheezing Gastro Gastrointestinal: Yes abdominal pain, Yes nausea or vomiting, Yes diarrhea, No constipation, No blood in stool, No acid reflux, No hemorrhoids, No ulcers, No gallbladder problem, No black,tarry stools Marc Hematologic: No blood thinners, No blood disorders, No bleeding, No anemia, No blood clots Neuro Neurologic: No system reviewed and no additional complaints, except as docu, No as per HPI, No abnormal walking, No abnormal hearing, No abnormal movements, No abnormal speech, No behavioral changes, No burning sensations, No confusion, No seizure-like activity, No unsteadiness, No dizziness, No localized weakness, No frequent falls, No headache(s), No lack of coordination, No loss of vision, No memory loss, No numbness, No other visual disturbances, No radiating pain, No restless legs, No sensory deficit, No fainting, No tingling, No tremor(s), No weakness, No other Exam Const General: cooperative, comfortable, no acute distress Nutritional Appearance: obese Orientation: alert, awake, oriented x3 HENMT Head: normal to inspection Eyes General: appearance normal, both eyes and all related structures Chest Breast Palpation: No nipple discharge Resp Effort & Inspection: normal respiratory effort Auscultation: clear to auscultation bilaterally Cardio Rate: regular rate Rhythm: regular rhythm Heart Sounds: no murmurs GI Palpation: soft Other: Transverse umbilical incision, large incarcerated incisional umbilical ventral hernia with 8 x 8 cm firm soft tissue mass. Mild erythema of the umbilical skin with thinning. No ulcerations or drainage. Nontender Normal bowel sounds Palpable mass right mid abdomen. Difficulty detecting with this could be the tip of the right lobe of the liver or renal enlargement. Possible distended right colon but less likely. Nontender. Musc Cervical Spine: normal cervical lordosis Neuro Cognition: normal cognition Extrem General: no calf tenderness bilaterally Psych Affect: normal affect Assessment & Plan Problems 1. Irreducible ventral incisional hernia K43.0 2. Abdominal mass, right upper quadrant R19.01 Plan 73-year-old female. Her clinical findings suggest a significantly incarcerated ventral incisional hernia at the umbilicus. Findings would suggest a significant amount of incarcerated omentum with thinning of the umbilical skin and slight erythema but no signs of overt cellulitis or infection. On clinical exam I am detecting a mass in the right abdomen. I cannot decipher whether this is simple renal enlargement or possible liver less likely bowel. I am recommending that we obtain a complete metabolic profile and a CBC. I would like to obtain a CT scan of the abdomen pelvis. We will expedite that for her. I would then like her to return the office. I definitely recommend repair of her incarcerated ventral hernia. This may be able to be accomplished to a direct approach but could require resection of the incarcerated tissue and then conversion to a laparoscopic approach. I have had an opportunity to discuss the potential but will have the patient return to the office subsequent to her CT for final planning. I very much appreciate the kind opportunity of assisting with her surgical care CC: Dr. Lisy Denny M.D., F.A.C.S. Orders Orders: Comprehensive Metabolic Profil Today R10.9 Abdomen/Pelvis WITH Contrast Today R10.9, R19.00 CBC-Complete Blood Cnt No Diff Today R10.9 Coding Level of Care Code Off vis,new,level 4 Diagnoses Irreducible ventral incisional hernia K43.0 Abdominal mass, right upper quadrant R19.01 10/11/18 [id number] <Electronically signed by Magdiel Denny MD> Date Magdiel Denny MD I have re-examined the patient. There are no clinical changes since date of exam.
--- NOTE | 2018-10-15 08:38 | OP.ENDO_ITS ---
10/15/2018 Lisy [address] [place] [address] Re : Colonoscopy procedure for Clover Fannie Dear Dr. Rangel This procedure was performed on Monday, October 15, 2018. My impressions and recommendations are as follows: Impressions : - Non-thrombosed external hemorrhoids, non-thrombosed internal hemorrhoids and internal hemorrhoids that prolapse with straining, but require manual replacement into the anal canal (Grade III) found on digital rectal exam. - Malignant tumor in the ascending colon, in the proximal ascending colon and in the cecum. Biopsied. - One 9 mm polyp at the hepatic flexure, removed with a hot snare. Resected and retrieved. - Diverticulosis in the sigmoid colon. Recommendations : - Discharge patient to home. - Resume previous diet. - Continue present medications. - Repeat colonoscopy in 1 year for surveillance. - Return to my office in 1 week to discuss right colectomy My findings are described in the full procedure note, which is enclosed. If I can be of further assistance, please feel free to contact me at Doctor phone number(s): Work: . Sincerely, Magdiel Denny MD 10/15/2018 8:37:34 AM This report has been signed electronically.
== END 2018-10-15 09:29 | disposition home or self-care (01) ==
LOC: EN 06:46 → AC 06:48
PROVIDERS: Family Provider Family Medicine; PCP Family Medicine; Referring Provider Family Medicine; Visit Provider Surgery
PROC: 0DJD8ZZ Inspection of Lower Intestinal Tract, Via Natural or Artificial Opening Endoscopic (ICD-10-PCS; CPT 45378; principal; 2018-10-15 07:55)
DX: C7A.8 Other malignant neuroendocrine tumors (principal); D12.3 Benign neoplasm of transverse colon; K57.30 Diverticulosis of large intestine without perforation or abscess without bleeding; K64.2 Third degree hemorrhoids; K43.0 Incisional hernia with obstruction, without gangrene
CPT/HCPCS: 45380; 88305; 88341; 88342; 99152; 99153; J7120

== ENCOUNTER 2018-10-20 06:59 | Inpatient (IN) | payer MEDICARE, OTHER, SELFPAY ==
[2018-10-15 07:05] VITALS: BMI 27.3
[2018-10-19 10:36] LABS: ALB/GLOB Ratio 0.9 RATIO (0.9-2.4); AST(SGOT) 33 U/L (15-37); Alanine Aminotransfer ALT/SGPT 14 U/L (13-56); Albumin, Serum 3.4 g/dL (3.2-5.0); Alkaline Phosphatase 98 U/L (45-117); Anion Gap 6 (5-15); BUN 7 mg/dL (7-18); BUN/Creat Ratio 10.8 RATIO (10-20); Calcium,Total 8.8 mg/dL (8.5-10.1); Chloride 105 mmol/L (98-107); Creatinine, Serum 0.65 mg/dL (0.55-1.02); EST Glomerular Filtration Rate 95 mL/min (>60); Est Glom Filt Rate - Afr Amer 115 mL/min (>60); Globulin 3.7 g/dL (2.2-4.2); Glucose 113 mg/dL (74-106); Potassium 3.7 mmol/L (3.5-5.1); Protein, Total 7.1 g/dL (6.4-8.2); Sodium Level 139 mmol/L (136-145)
--- NOTE | 2018-10-19 13:22 | EKG12_ITS ---
Test Reason : PRE OP Blood Pressure : / mmHG Vent. Rate : 069 BPM Atrial Rate : 069 BPM P-R Int : 110 ms QRS Dur : 072 ms QT Int : 376 ms P-R-T Axes : 000 -09 027 degrees QTc Int : 402 ms Sinus rhythm with short MD Minimal voltage criteria for LVH, may be normal variant Nonspecific ST abnormality Abnormal ECG Confirmed by THOMAS YAÑEZ, LILI ([id number]), taker off BRENDA VALENCIA ([id number]) on 10/20/2018 10:42:48 AM Referred By: Magdiel Denny Confirmed By:LILI GUZMAN MD
--- NOTE | 2018-10-19 13:25 | RAD_ITS ---
STUDY: X-RAY CHEST REASON FOR EXAM: Female, 73 years old. Pre-op TECHNIQUE: Frontal and lateral views of the chest. COMPARISON: None. FINDINGS: The lungs are hyperexpanded. There are coarsened interstitial markings suggestive of mild chronic fibrosis. No gross focal infiltrates. Several small calcifications of the mid right lung. No gross effusions. Normal size heart. Normal mediastinum and reed. Normal visualized pulmonary arteries. There is atherosclerotic calcification of the aortic arch with tortuosity. There are diffuse degenerative changes of the visualized thoracic spine. Previous surgical repair of the proximal left humerus. There is no demonstrated abnormality of the visualized soft tissue structures of the upper abdomen. RAD/Chest PA and Lateral IMPRESSION: No definite acute chest disease. Electronically Signed: Marciano Villela MD at 13:53 EDT , Service support ,
[2018-10-19 13:57] LABS: Hematocrit 39.2 % (37-47); Hemoglobin 12.3 g/dl (12.0-15.0); Mean Corp Hgb Conc 31.4 g/gl (32-36); Mean Corpuscular Hgb 28.5 pg (27.0-32.0); Mean Platelet Vol. 11.2 fl (6.2-12.0); Platelet Count 303 K/mm3 (150-450); RBC Distribution Width CV 14.5 % (11.6-14.6); RBC Distribution Width SD 48.5 fl (35.1-43.9); Red Blood Count 4.31 M/mm3 (4.2-5.4); Scan Indicated on CBC? Y/N NO; White Blood Count 10.4 K/mm3 (4.4-11.0)
[2018-10-20] VITALS (11 sets, daily range): BP systolic 109–148; BP diastolic 59–71; PULSE 60–80; RESP 14–16; TEMP 36.7–37.1; O2SAT 94–100; BMI 28.9
--- NOTE | 2018-10-20 | IMM_PTH ---
PATIENT: TANNER DAVALOS LOC: MS2 U#:[id number] AGE/SX: 73/F ROOM: [facility] [place] RE10/20/[address]: Dr. Magdiel Denny MD : 1945 BED: 1 DIS: 10/22/2018 SPEC #: [id number] RECD: 10/22/18 13:47 STATUS: WALI REQ #: [id number] CRUZ: 10/20/18 00:[address]: Magdiel Denny DEPT: IMMUNOHISTOCHEMISTRY RECD BY: Jennifer Olguin ENTERED: 10/22/18 13:50 SP TYPE: IMMUNO OTHR DR: Dr. Lisy Rangel MD Tissues: Right colon Procedures: Synapto (add) MSH2 (add) MLH-1 (add) MSH6 (add) Anti-PMS2 (add) CD31 (add) CD56 (add) CHROMO (add) CK8 (add) POLANCO-2 (add) HER2 UNIQUE (add) P53 (add) FACTOR VIII (add) CDX2 (add) NSE (add) KI-67 (initial) PHYSICIAN & [place] [id number] SPECIMEN INFORMATION: Tissue Source: Right colon Clinical Info: Abdominal mass right upper quadrant Specimen Number: [id number] #6 CPT code: 35883, 77668 x15 METHODOLOGY: Deparaffinized sections of prefer/formalin-fixed tissue or PAP/DQ stained slides are incubated with monoclonal/polyclonal antibodies/oligonucleotide probes. Localization is made via biotin free immunoperoxidase method. Appropriate controls are performed and reacted as expected. Results on target cell population are indicated in the following table: RESULTS: ANTIBODY / CLONE RESULT Block 6 Ki-67 (30-9) positive, 80% P53 (DO-7) positive, 15% POLANCO-2 (SP21) positive MLH-1 (M1) positive MSH2 (25D12) positive MSH6 (44) positive PMS2 (AYF3093) positive Her-2neu (CB11) negative CDX2 (MVC4599I) positive CD56 (123C3.D5) positive Chromo (LK2H10) positive NSE Neuron Specific Enolase positive, focal Synapto (polyclonal) positive CK8 (00cutgM93) positive Factor VIII (R Ag) * CD31 (BOUBACAR/70A) * * indeterminate These tests were developed and their performance characteristics determined by [facility]. They may not have been cleared or approved by the U.S. Food and Drug Administration. The FDA has determined that such clearance or approval is not necessary. INTERPRETATION: Right colon: High-grade neuroendocrine carcinoma. Result of Microsatellite Instability Study: Negative (no loss of mismatch protein; no microsatellite instability detected). AM:steve 10/27/18
--- NOTE | 2018-10-20 06:05 | HP.PCM_ITS ---
Problem List (1) Colon cancer Status: Acute History and Physical Date of Admission: 10/20/18 Intake Intake Visit Reasons: discuss colectomy Chief Complaint: discuss colectomy Edge Stainer Required: No Is patient in pain?: No Allergies No Known Allergies Allergy (Verified 10/15/18 15:10) Medications Ascorbic Acid [Vitamin C] 2,000 mg PO DAILY@0800 05/29/15 [History Confirmed 10/15/18] Multivitamin [Daily Multiple Vitamin] 1 ea PO DAILY 05/29/15 [History Confirmed 10/15/18] Cholecalciferol (Vitamin D3) [Vitamin D3] 2,000 unit PO DAILY 09/25/17 [History Confirmed 10/15/18] Aspirin 325 mg PO BIDCM #30 tab 10/14/17 [Rx Confirmed 10/15/18] oxybutynin chloride 5 mg tablet 5 mg PO BID tab 10/11/18 [History Confirmed 10/15/18] Is last menstrual period known: No Post menopausal: Yes Patient : No Subjective Details: 73-year-old female. Earlier today I performed a colonoscopy for her. She had a diminutive polyp of the descending colon 3 small polyps of the distal transverse colon a small polyp of the hepatic flexure but unfortunately there was a dominant mass involving the cecum and ascending colon that clearly appeared malignant. Her previous history as noted below. We had her return to the office this afternoon so we could discuss preoperative planning in order to expedite her surgical care. The upcoming holiday complicated getting her ready for her ERAS bowel preparation. She presents with her and daughter today. A extensive discussion regarding surgical technique was discussed with her today. Problem List (1) Abdominal mass, right upper quadrant Status: Acute History and Physical Date of Admission: 10/15/18 MR#:[id number] Name: TANNER DAVALOS [facility] #:[id number] : 1945 Provider:Magdiel Denny MD Age/Sex: 73/F Location:[facility] Status:Signed with Addenda ADDENDUM by Magdiel Denny MD on 10/13/18 at 1643 Addendum entered and electronically signed by Magdiel Denny MD 10/13/18 16:43: October 13, 2018 On this patient's office visit I detected what I thought was a right mid abdominal mass. She certainly has a sizable incarcerated incisional ventral periumbilical hernia. But my clinical exam detected something on the right. I recommended a CT scan. This demonstrates a significant amount of omentum incarcerated within the ventral hernia however there appears to be a mass within the cecum. The patient had presented to me in anticipation of repairing her ventral hernia. We have discussed with her recommendations to convert to performing a bowel prep preparation and performing a colonoscopy with possible biopsy or polypectomy as indicated. She has had an opting to ask and have questions answered. We will schedule and expedite her care as appropriate. Magdiel Denny M.D., F.A.C.S. Intake Allergies No Known Allergies Allergy (Verified 10/11/18 14:05) Medications Ascorbic Acid [Vitamin C] 2,000 mg PO DAILY@0800 05/29/15 [History Confirmed 10/11/18] Multivitamin [Daily Multiple Vitamin] 1 ea PO DAILY 05/29/15 [History Confirmed 10/11/18] Cholecalciferol (Vitamin D3) [Vitamin D3] 2,000 unit PO DAILY 09/25/17 [History Confirmed 10/11/18] Aspirin 325 mg PO BIDCM #30 tab 10/14/17 [Rx] Oxycodone [Oxyir] 5 - 10 mg PO Q4H PRN PRN 5 Days #60 tab 10/14/17 [Rx Confirmed 10/11/18] Senna/Docusate Sodium [Senokot-S] 2 tab PO BID #20 tab 10/14/17 [Rx Confirmed 10/11/18] oxybutynin chloride 5 mg tablet 5 mg PO BID tab 10/11/18 [History Confirmed 10/11/18] Assessment & Plan Problems 1. Irreducible ventral incisional hernia K43.0 2. Abdominal mass, right upper quadrant R19.01 Plan - Magdiel Denny MD 73-year-old female. Her clinical findings suggest a significantly incarcerated ventral incisional hernia at the umbilicus. Findings would suggest a significant amount of incarcerated omentum with thinning of the umbilical skin and slight erythema but no signs of overt cellulitis or infection. On clinical exam I am detecting a mass in the right abdomen. I cannot decipher whether this is simple renal enlargement or possible liver less likely bowel. I am recommending that we obtain a complete metabolic profile and a CBC. I would like to obtain a CT scan of the abdomen pelvis. We will expedite that for her. I would then like her to return the office. I definitely recommend repair of her incarcerated ventral hernia. This may be able to be accomplished to a direct approach but could require resection of the incarcerated tissue and then conversion to a laparoscopic approach. I have had an opportunity to discuss the potential but will have the patient return to the office subsequent to her CT for final planning. I very much appreciate the kind opportunity of assisting with her surgical care CC: Dr. Lisy Denny M.D., F.A.C.S. Orders Orders: Comprehensive Metabolic Profil 10/11/18 R10.9 Abdomen/Pelvis WITH Contrast 10/12/18 R10.9, R19.00 CBC-Complete Blood Cnt No Diff 10/11/18 R10.9 10/13/18 1643<Electronically signed by Magdiel Denny MD> Date Magdiel eDnny MD cc: Lisy Rangel MD ~* Signed Intake Vital Signs 10/11/18 Body Mass Index (BMI) 33.5 10/11/18 Height 5 ft 4 in 10/11/18 Weight: 169 lb 10/11/18 Body Mass Index (BMI) 29.0 10/11/18 Blood Pressure 127/78 H 10/11/18 Blood Pressure Location Rt brachial 10/11/18 Blood Pressure Position Sitting 10/11/18 Respiratory Rate 18 10/11/18 Pulse Rate 93 10/11/18 Pulse Source Monitor 10/11/18 Temperature 98.1 F 10/11/18 Temperature Source Oral 10/11/18 Pulse Ox 93 10/11/18 Oxygen Delivery Method room air Intake Visit Reasons: Umbilical Hernia - Self Ref Chief Complaint: postop Edge Stainer Required: No Is patient in pain?: No Allergies No Known Allergies Allergy (Verified 10/11/18 14:05) Medications Ascorbic Acid [Vitamin C] 2,000 mg PO DAILY@0800 05/29/15 [History Confirmed 10/11/18] Multivitamin [Daily Multiple Vitamin] 1 ea PO DAILY 05/29/15 [History Confirmed 10/11/18] Cholecalciferol (Vitamin D3) [Vitamin D3] 2,000 unit PO DAILY 09/25/17 [History Confirmed 10/11/18] Aspirin 325 mg PO BIDCM #30 tab 10/14/17 [Rx] Oxycodone [Oxyir] 5 - 10 mg PO Q4H PRN PRN 5 Days #60 tab 10/14/17 [Rx Confirmed 10/11/18] Senna/Docusate Sodium [Senokot-S] 2 tab PO BID #20 tab 10/14/17 [Rx Confirmed 10/11/18] oxybutynin chloride 5 mg tablet 5 mg PO BID tab 10/11/18 [History Confirmed 10/11/18] [facility] Medical History Urinary incontinence (Chronic) Umbilical hernia (Acute) irregular bowel patterns (Acute) Surgical History History of total bilateral knee replacement (Acute) Family History Mother Breast cancer Social History Smoking Status: Never smoker alcohol intake: never substance use type: does not use HPI HPI HPI: TANNER DAVALOS, is a 73 F who presents to the office today for surgical consultation regarding an umbilical hernia. The patient states that she is self-referred. It is been present for at least 2 years. She presumes that it is an umbilical hernia. She does go on to describe that in [address] Iker Franco for a right hip replacement and then 2017 she had a left hip replac ement performed by Dr. Daigle.. Since that time she has had sciatica and L2-3-4 and 5 impingement. She has been treated by Dr. Aviles pain specialty. She had some problems with bowel control and urinary control. Her most recent colonoscopy was June 2016 and there was biopsy of hepatic flexure lesion performed by Dr. Christian Emerson and that was fragments of hyperplastic polyp. She does remember that she had a small transverse incision at the umbilicus but she thought that was simply for a fatty mass. She does not have good recollection regarding that procedure. She denies nausea or vomiting or fever or chills or sweats or bright red blood per rectum or melena. She has not had any drainage at the umbilicus. HPI HPI HPI: TANNER DAVALOS, is a 73 F who presents to the office today for ROS General General: Yes weight change and fatigue; no appetite, colon cancer, breast cancer or weakness HEENT HEENT: No difficulty swallowing, eye injury, eye surgery, swollen glands or h oarseness Endo Endocrine: No thyroid disease, diabetes mellitus, thyroid cancer, Hair loss, heat intolerance or cold intolerance Skin Skin: No rash or changing moles Breast Breast: No left breast lump, right breast lump, nipple discharge, breast pain, abnormal mammogram, abnormal US or breast enlargement Musc Musculoskeletal: Yes arthritis; no back problems, rheumatoid arthritis, gout or joint pain Cardio Cardiovascular: No murmur, pacemaker, heart disease, atrial fibrillation, high blood pressure, heart attack, heart stent, palpitations, shortness of breat with exertion or chest pain Psych Psychiatric: No depression, anxiety or hearing voices Resp Respiratory: No shortness of breath, No sleep apnea, No cough, No COPD, No asthma, No emphysema, No wheezing Gastro Gastrointestinal: Yes abdominal pain, Yes nausea or vomiting, Yes diarrhea, No constipation, No blood in stool, No acid reflux, No hemorrhoids, No ulcers, No gallbladder problem, No black,tarry stools Marc Hematologic: No blood thinners, No blood disorders, No bleeding, No anemia, No blood clots Neuro Neurologic: No system reviewed and no additional complaints, except as docu, No as per HPI, No abnormal walking, No abnormal hearing, No abnormal movements, No abnormal speech, No behavioral changes, No burning sensations, No confusion, No seizure-like activity, No unsteadiness, No dizziness, No localized weakness, No frequent falls, No headache(s), No lack of coordination, No loss of vision, No memory loss, No numbness, No other visual disturbances, No radiating pain, No restless legs, No sensory deficit, No fainting, No tingling, No tremor(s), No weakness, No other Exam Const General: cooperative, comfortable, no acute distress Nutritional Appearance: obese Orientation: alert, awake, oriented x3 HENMT Head: normal to inspection Eyes General: appearance normal, both eyes and all related structures Chest Breast Palpation: No nipple discharge Resp Effort & Inspection: normal respiratory effort Auscultation: clear to auscultation bilaterally Cardio Rate: regular rate Rhythm: regular rhythm Heart Sounds: no murmurs GI Palpation: soft Other: Transverse umbilical incision, large incarcerated incisional umbilical ventral hernia with 8 x 8 cm firm soft tissue mass. Mild erythema of the umbilical skin with thinning. No ulcerations or drainage. Nontender Normal bowel sounds Palpable mass right mid abdomen. Difficulty detecting with this could be the tip of the right lobe of the liver or renal enlargement. Possible distended right colon but less likely. Nontender. Musc Cervical Spine: normal cervical lordosis Neuro Cognition: normal cognition Extrem General: no calf tenderness bilaterally Psych Affect: normal affect Assessment & Plan Problems 1. Irreducible ventral incisional hernia K43.0 2. Abdominal mass, right upper quadrant R19.01 Plan 73-year-old female. Her clinical findings suggest a significantly incarcerated ventral incisional hernia at the umbilicus. Findings would suggest a significant amount of incarcerated omentum with thinning of the umbilical skin and slight erythema but no signs of overt cellulitis or infection. On clinical exam I am detecting a mass in the right abdomen. I cannot decipher whether this is simple renal enlargement or possible liver less likely bowel. I am recommending that we obtain a complete metabolic profile and a CBC. I would like to obtain a CT scan of the abdomen pelvis. We will expedite that for her. I would then like her to return the office. I definitely recommend repair of her incarcerated ventral hernia. This may be able to be accomplished to a direct approach but could require resection of the incarcerated tissue and then conversion to a laparoscopic approach. I have had an opportunity to discuss the potential but will have the patient return to the office subsequent to her CT for final planning. I very much appreciate the kind opportunity of assisting with her surgical care CC: Dr. Lisy Denny M.D., F.A.C.S. Orders Orders: Comprehensive Metabolic Profil Today R10.9 Abdomen/Pelvis WITH Contrast Today R10.9, R19.00 CBC-Complete Blood Cnt No Diff Today R10.9 Coding Level of Care Code Off vis,new,level 4 Diagnoses Irreducible ventral incisional hernia K43.0 Abdominal mass, right upper quadrant R19.01 10/11/18 1553<Electronically signed by Magdiel Denny MD> Date Magdiel Denny MD I have re-examined the patient. There are no clinical changes since date of exam. 10/15/18 0533<Electronically signed by aMgdiel Denny MD> Date Magdiel Denny MD Cosigner Signature:Date (if applicable) [facility] Imaging Services [address] [place] [address] Abdomen/Pelvis WITH Contrast MR#: [id number] Name: TANNER DAVALOS [facility] #:[id number] : 1945 73 From: Judson Pearson MD PCP:Lisy Rangel MD Status:REG CLI Study:Abdomen/Pelvis WITH Contrast Date of Exam:10/12/18 Exam#[id number] Ordering Dr: Magdiel Denny MD STUDY: CT ABDOMEN AND PELVIS WITH CONTRAST REASON FOR EXAM: Female, 73 years old. Abdominal pain, umbilical hernia times years RADIATION DOSAGE (If Supplied By Facility): CTDIvol = ( 17.79 ) mGy, DLP = ( 1172.41 ) mGycm TECHNIQUE: Transaxial images were obtained from the dome of the diaphragm to the symphysis pubis without oral contrast. 100 IV/Oral Isovue 300 was administered. Sagittal and coronal images were reconstructed. Individualized dose optimization techniques were used for this CT. COMPARISON: None. FINDINGS: There is a pleural-based 3 mm right lower lobe nodule image 1 of series 4. The visualized portions of the heart are within normal limits. There are multiple scattered hepatic hypodensities measuring up to 1.1 cm. Normal gallbladder and extrahepatic biliary system. Normal spleen. Normal pancreas. Normal bilateral adrenal glands. There is a 3.5 x 3.1 cm right renal cyst. Normal left kidney. Normal visualized stomach. Normal small intestine. There is a cecal mass measuring approximately 6.4 x 6.8 x 6.8 cm. There are multiple adjacent enlarged mesenteric nodes. There is sigmoid diverticulosis with no evidence of associated diverticulitis. There is non-visualization of the appendix. There are calcified plaques of the abdominal aorta. Normal inferior vena cava. There are scattered shotty retroperitoneal nodes. Normal urinary bladder. There is a tiny amount of free fluid in the deep right pelvis. Evaluation of pelvic organs is limited due to scanning artifact caused by bilateral hip implants. There is a dumbbell shaped mass of the anterior pelvis extending into the left paraumbilical subcutaneous soft tissues. This mass contains fat, and measures approximately 8.7 x 5.4 x 7.9 cm. There are large bilateral fat-containing inguinal hernias. There is a minimal grade 1 anterolisthesis of L4 relative to L5. Bilateral hip replacements are noted. CT/Abdomen/Pelvis WITH Contrast IMPRESSION: 1. Cecal mass measuring approximately 6.4 x 6.8 x 6.8 cm. Findings are highly suspicious for malignancy. There are multiple adjacent enlarged mesenteric nodes. 2. There is a dumbbell shaped 3. mass of the anterior pelvis extending into the left periumbilical subcutaneous soft tissues. This mass contains fat and measures approximately 8.7 x 5.4 x 7.9 cm. This may represent indurated omental fat. 4. There are multiple scattered hepatic hypodensities measuring up to 1.1 cm, raising the suspicion of metastatic disease. 5. There are scattered shotty retroperitoneal nodes. 6. There is a tiny amount of free fluid in the deep right pelvis. 7. Bilateral hip implants. Minimal grade 1 anterolisthesis of L4 relative to L5. 8. Large bilateral fat-containing inguinal hernias. Electronically Signed: Judson Pearson MD at 17:11 EDT , Service support , Assessment & Plan Problems 1. Colon cancer C18.9 2. Irreducible ventral incisional hernia K43.0 Plan Although this 73-year-old female presented because of an incarcerated ventral incisional hernia with significant amount of omentum within on clinical exam I detected a mass in the right mid abdomen. CT scan suggest malignancy of the cecum ascending colon with multiple enlarged lymph nodes. Colonoscopy today demonstrated benign-appearing polyps in the descending colon distal transverse colon and hepatic flexure although it did demonstrate what appeared to be a malignancy in the cecum and ascending colon. CT is suspicious for metastatic disease to regional lymph nodes. CT is suspicious for possible metastatic disease to the liver. I recommend to the patient a laparoscopic inspection after freeing the incarcerated incisional hernia suspected omentum. She may then be a candidate for a hand assist or because of the dominant size of the mass she may require conversion to an open right colectomy. I anticipate a primary repair. She is aware that I will not utilize mesh for her hernia repair at this time and she is at high risk for recurrence. I have discussed the technique, benefit, risks, alternatives. No guarantees of success have been offered. She has had an opportunity to ask and have questions answered. She is aware that we will need to involve medical oncology post procedure. Pathology is pending and will be reviewed prior to definitive surgery. We will utilize oral antibiotic and IV antibiotic as well as mechanical bowel prep in a enhanced recovery program. She is aware that a tap block will be performed. CC: Dr. Lisy Denny M.D., F.A.C.S. Orders Orders: Comprehensive Metabolic Profil Today E87.6 Carcinoembryonic Antigen Today C18.9 Coding Level of Care Code Global Post Op Diagnoses Colon cancer C18.9 Irreducible ventral incisional hernia K43.0 10/15/18 1640 <Electronically signed by Magdiel Denny MD> Date Magdiel Denny MD Cosigner Signature: Date (if applicable) CC: Lisy Rangel MD ~ I have re-examined the patient. There are no clinical changes since date of exam
[2018-10-20] MEDS: Acetaminophen 500 MG Tablet 1000 MG PO ×2 (07:54→17:35)
[2018-10-20] MEDS: Gabapentin 600 MG Tablet PO (07:55)
[2018-10-20] MEDS: Magnesium Sulfate 4gm/100mL 4 GM/100 ML IV.SOLN. IV (08:08)
[2018-10-20] MEDS: Lactated Ringers 1,000 ML 40 ML IV ×2 (08:09→21:08)
[2018-10-20 08:10] LABS: Bedside Glucose 131 mg/dL (70-110)
--- NOTE | 2018-10-20 09:02 | DCINST_ITS ---
Discharge Diet: Light diet - advance as tolerated - if you have questions about your diet instructions, please talk to you doctor. Discharge Activity: May Not Drive - for 1 week or while taking narcotic pain medicine. May shower in (days): 1 Lifting Restrictions: 10 pounds Call your doctor if your incision/area has: Continuous Slow Oozing, Sudden Increased Bleeding, Increased Pain/ Swelling, Increased Redness, Foul Smelling Discharge Call your doctor if you observe: Fever of 101 or Higher Suture Line Care: Avoid Pulling/Pushing, Avoid Pinching/Bending Additional Dressing/Incision Instructions:: Change or remove dressing in 2 days. Leave steri-strips in place for 1 week. Allergies/Adverse Reactions: Allergies No Known Allergies Allergy (Verified 10/19/18 11:42) Medications to take at Discharge Ascorbic Acid [Vitamin C] 2,000 mg PO DAILY@0800 05/29/15 Multivitamin [Daily Multiple Vitamin] 1 ea PO DAILY 05/29/15 Cholecalciferol (Vitamin D3) [Vitamin D3] 2,000 unit PO DAILY 09/25/17 oxybutynin chloride 5 mg tablet 5 mg PO BID tab 10/11/18 Aspirin 325 mg PO BIDCM PRN 10/19/18 Hydrocodone Bitart/Apap 5-325 [P[place]man 5MG-325MG] 1 tablet PO Q4H PRN PRN 3 Days #10 tablet 10/20/18 The following prescriptions were given: Hydrocodone Bitart/Apap 5-325 [P[place]man 5MG-325MG] 1 tablet PO Q4H PRN PRN 3 Days #10 tablet PRN Reason: Pain Primary Care Physician: Lisy Rangel MD [Primary Care Provider] - Test Results: Test results from this visit will be discussed in further detail at your follow- up appointment, if applicable. Please Follow Up With: Magdiel Denny MD - [phone] When: Call to make an appointment to be seen in about 10 days.
--- NOTE | 2018-10-20 09:20 | COL._PTH ---
PATIENT: TANNER DAVALOS LOC: MS2 U#:[id number] AGE/SX: 73/F ROOM: MS209 RE10/20/[address]: Dr. Magdiel Denny MD : 1945 BED: 1 DIS: 10/22/2018 SPEC #: [id number] RECD: 10/20/18 13:04 STATUS: WALI JANE #: [id number] CRUZ: 10/20/18 09:[address]: Magdiel Denny DEPT: SURGICAL PATHOLOGY RECD BY: Shorty Jeffers ENTERED: 10/20/18 13:55 SP TYPE: COLON OTHR DR: Dr. Lisy Rangel MD Tissues: Right colon Procedures: Surgery Specimen Level HEADER OPERATION: sakina ELLIOTT with conversion to open, hemicolectomy PRE-OP DIAGNOSIS: Irreducible ventral incisional hernia; abdominal mass right upper quadrant TISSUE SUBMITTED: Right colon MICROSCOPIC DIAGNOSIS Right colon, hemicolectomy: Invasive high-grade neuroendocrine carcinoma. See comment. AM:steve 10/26/18 COMMENT COLON CANCER SUMMARY: Specimen - right colon Procedure - right hemicolectomy Tumor site - cecum Tumor size - 7.8 x 5.5 x 1.6 cm Macroscopic tumor perforation - not identified Histologic type - high grade neuroendocrine carcinoma with extensive tumor necrosis. Histologic grade - high grade, poorly differentiated Microscopic tumor extension - tumor penetrates through surface of visceral peritoneum (serosa). Margins: Proximal mucosal margin - uninvolved by invasive carcinoma Distal mucosal margin - uninvolved by invasive carcinoma Circumferential (radial) margin - involved by invasive carcinoma, focal Treatment effect - unknown Lymph-Vascular invasion - present, focal Perineural invasion - present, focal Tumor deposits - present, numerous (largest deposit measures 6 cm in greatest dimension) Polyp associated with invasive carcinoma - tubular adenoma Lymph nodes: Number of lymph nodes examined - 8 Number of lymph nodes involved - 2 Additional pathologic findings - one serrated adenoma Ancillary studies: See microsatellite instability study by IHC ([id number]) for complete details. Result of microsatellite instability study: Negative (no loss of mismatch protein; no microsatellite instability detected). KI67 index - 80% (high) PATHOLOGIC STAGE: pT4a N1b Mx The above summary is in compliance with [employer] (CAP) Cancer Protocols Checklist and [place] Joint Committee on Cancer (AJCC), Staging Manual, 8th Ed. This case was reviewed and diagnosis discussed with Dr. Pillai on 10/28/18. Case has been reviewed in consultation with Dr. Lombardo who concurs with the above diagnosis. IDC:SJ MICROSCOPIC DESCRIPTION Slides are reviewed. GROSS DESCRIPTION Received in fixative is one container labeled with the patient's name and designated right colon. The fatty tissue is removed and placed into lymph node-revealing solution for overnight fixation. / CE:steve 10/20/18 The specimen consists of a segment of terminal ileum, cecum and ascending colon. The segment of terminal ileum measures 7.5 cm in length x 1.7 cm in diameter. The serosal surface of the terminal ileum is gtz-pink and smooth. The fatty tissue adjacent to the ileocecal valve and the serosal surface over the cecum demonstrates firm, gtz tumor with retraction. The ascending colon also shows large tumor deposits within the pericolic fatty tissue. The largest tumor deposit measures 6 cm in diameter and is covered by variable gtz to red hemorrhagic tissue. Cut surface of this tumor deposit demonstrates gtz-white firm tumor intermingled with fatty tissue. Adjacent areas of fatty tissue measuring 11 x 5 x 1 cm are also firm with extensive tumor deposits. Cut surfaces of these areas also show gzt-white tumor intermingled with yellow, lobulated fatty tissue. The mucosal surface of the cecum directly distal to the ileocecal valve demonstrates a 7.8 x 5.5 cm firm annular tumor with central degenerative change/ ulceration. Cross-sections through this area demonstrate gross extension through the cecal wall into the pericolic fatty tissue (rule out serosal involvement). The colonic mucosa distal to the tumor shows a single gtz polyp measuring 0.3 cm in diameter. Lighting Technician sections are submitted as follows: 1??terminal ileum, mucosal margin of resection, 2 - ascending colon, mucosal margin of resection, 3??0.3?cm polyp from ascending colon, 4-6 - cross sections of cecal tumor, 7-10 - peritumoral fatty tissue, 11 & 12 - tumor involving fatty tissue in ascending colon, 13 - 0.8 cm lymph node versus metastatic deposit, 14 - one lymph node bisected, 15 - one lymph node bisected, 16 - two lymph node candidates, 17-22 - additional lymph node candidates. / CE:steve 10/21/18 Additional sections are submitted as follows: 23 - multiple pericolic nodules, 24 - one nodule, serially sectioned, 25 - multiple lymph nodes. / AM:steve 10/22/18 TC:0 CPT: 87383
[2018-10-20] MEDS: Lidocaine/D5W 2,000 MG/250 ML IV.SOLN 22.38 MG IV (09:40)
[2018-10-20] MEDS: Bupivacaine 0.25% 30 ML Vial ×2 (11:54)
[2018-10-20] MEDS: BUPIVACAINE LIPOSOME/PF 20 ML VIAL OPERA.SITE (11:54)
--- NOTE | 2018-10-20 12:07 | PCM.OPRPT ---
Problem List (1) Colon cancer Status: Acute Qualifiers: Colon location: ascending Qualified Code(s): C18.2 - Malignant neoplasm of ascending colon Report of Operation Date of Procedure: 10/20/18 Pre-Operative Diagnosis: Ascending colon neoplasm with metastatic disease to lymph nodes and liver. Incarcerated omentum within a ventral hernia Post-Operative Diagnosis: Diffusely metastatic ascending colon neoplasmWith significant retroperitoneal disease. Multiple areas of omental involvement. Peritoneal seeding. Liver involvement. Surgery/Procedure Performed:: Hand assisted laparoscopic extended right colectomy with omentectomy. Ventral incisional herniorrhaphy. Bilateral MADONNA block Description of Surgical Findings:: Timeout and informed consent was obtained. 73-year-old female taken the operative placement table underwent general endotracheal intubation anesthesia. Cefotetan 2 g given intravenous preoperatively. The arm was sterilely prepped draped with chlorhexidine. Ioban draping was used. A vertical incision was made long term through the incarcerated area at the umbilicus and superiorly. Sharp dissection carried down through the substance tissue. The linea alba was incised and immediately upon entering the abdomen it became apparent that there was a large mass of omentum incarcerated with the ventral hernia located at the umbilicus with tumor involvement. There was extensive peritoneal seeding. There was a small amount of ascitic fluid. There was a large mass involving the ascending colon with dense attachment to the retroperitoneum. With sharp and blunt dissection I release the incarcerated omentum and tumor at the ventral umbilical site. I placed the hand assist port. I placed two 5-minute ports one in the left upper quadrant one in the right upper quadrant and using those I utilized that these harmonic scalpel to release the ascending colon and proximal transverse colon. It is of note that there was extensive red retroperitoneal involvement to where tumor fracture technique had to be utilized to free the ascending colon particular close to the hepatic flexure. There was some bleeding at that site which was treated with electrocautery and pressure and a laparotomy pack. Argon beam was not available to us today. I was able to evacuate the right colon then through the hand assist port site was able to visualize that the greater omentum coming off the transverse colon had a big bulk of the disease and so I transected the transverse colon distal to the midpoint transected the mesentery using the harmonic scalpel and were needed hemostasis was additionally obtained with hemoclips or 0 chromic ligatures. Having completely mobilized now the terminal ileum and the proximal half of the colon I used a COREY-75 stapler to transect the transverse colon and the terminal ileum. There were placed side to side and held there with 4-0 silk. Enterotomies were created. A functional end-to-end anastomosis was created by placing the bowel side by side and using the 75 mm stapler. I then closed the enterotomy site with a TA 60 stapler. I closed the trap with a running 4-0 silk. Bowel appeared to be viable appeared to have adequate blood flow I tried to make the anastomosis free of gross peritoneal disease though there was seeding involving the mesentery and peritoneum and omentum throughout. Bulky disease of the omentum was resected with the specimen. I placed the bowel back within the abdomen. Under lap scopic visualization a bilateral tap block was performed I used 60 cc of 0.25% Marcaine mixed with 20 cc of Exparel and visualized laparoscopically bilaterally as the tap block was performed into the plane of the external oblique/internal oblique. This was performed bilaterally. Having accomplished that I inspected for bleeding. The abdomen was irrigated the area of tumor involvement in the right retroperitoneum appear to be hemostatic. The lap pack was removed. The small bowel appeared viable. The abdomen was allowed to deflate of the CO2. The fascial defect and hernia was approximated midline with a running 0 Prolene. Skin edges were approximated with interrupted and running septic or 4-0 Monocryl. The gerda-incisional area at the midline incision had also been treated with the local anesthetic mixture. Sponge and instrument and needle counts were reported to the surgeon to be correct. Blood loss generously estimated at 300 cc though likely less. Specimens include the extended right colon with omental bulk. Drains none. The patient was taken to the recovery area in satisfactory condition without apparent complication. The patient is anticipated to a to require intraperitoneal fluid and likely will third space. A Lincoln catheter will be placed to carefully monitor urine output. The ERAS program will need to be modified appropriately. Magdiel Denny M.D., F.A.C.S. Type of Anesthesia:: General Anesthesiologist: Sky Pete - Admit VTE Documentation VTE Present on Admission: No VTE Mechan Device Prophylaxis: SCD's VTE Pharm Prophylaxis ordered?: No Reason prophylaxis not ordered:: Medical Contraindication - Extensive intra-abdominal dissection and tumor bulk placing patient at risk for hemorrhage
--- NOTE | 2018-10-20 12:15 | OP.PCM_ITS ---
Problem List (1) Colon cancer Status: Acute Qualifiers: Colon location: ascending Qualified Code(s): C18.2 - Malignant neoplasm of ascending colon Report of Operation Date of Procedure: 10/20/18 Pre-Operative Diagnosis: Ascending colon neoplasm with metastatic disease to lymph nodes and liver. Incarcerated omentum within a ventral hernia Post-Operative Diagnosis: Diffusely metastatic ascending colon neoplasmWith significant retroperitoneal disease. Multiple areas of omental involvement. Peritoneal seeding. Liver involvement. Surgery/Procedure Performed:: Hand assisted laparoscopic extended right colectomy with omentectomy. Ventral incisional herniorrhaphy. Bilateral MADONNA block Description of Surgical Findings:: Timeout and informed consent was obtained. 73-year-old female taken the operative placement table underwent general endotracheal intubation anesthesia. Cefotetan 2 g given intravenous preoperatively. The arm was sterilely prepped draped with chlorhexidine. Ioban draping was used. A vertical incision was made prison through the incarcerated area at the umbilicus and superiorly. Sharp dissection carried down through the substance tissue. The linea alba was incised and immediately upon entering the abdomen it became apparent that there was a large mass of omentum incarcerated with the ventral hernia located at the umbilicus with tumor involvement. There was extensive peritoneal seeding. There was a small amount of ascitic fluid. There was a large mass involving the ascending colon with dense attachment to the retroperitoneum. With sharp and blunt dissection I release the incarcerated omentum and tumor at the ventral umbilical site. I placed the hand assist port. I placed two 5- minute ports one in the left upper quadrant one in the right upper quadrant and using those I utilized that these harmonic scalpel to release the ascending colon and proximal transverse colon. It is of note that there was extensive red retroperitoneal involvement to where tumor fracture technique had to be utilized to free the ascending colon particular close to the hepatic flexure. There was some bleeding at that site which was treated with electrocautery and pressure and a laparotomy pack. Argon beam was not available to us today. I was able to evacuate the right colon then through the hand assist port site was able to visualize that the greater omentum coming off the transverse colon had a big bulk of the disease and so I transected the transverse colon distal to the midpoint transected the mesentery using the harmonic scalpel and were needed hemostasis was additionally obtained with hemoclips or 0 chromic ligatures. Having completely mobilized now the terminal ileum and the proximal half of the colon I used a COERY-75 stapler to transect the transverse colon and the terminal ileum. There were placed side to side and held there with 4-0 silk. Enterotomies were created. A functional end-to-end anastomosis was created by placing the bowel side by side and using the 75 mm stapler. I then closed the enterotomy site with a TA 60 stapler. I closed the trap with a running 4-0 silk. Bowel appeared to be viable appeared to have adequate blood flow I tried to make the anastomosis free of gross peritoneal disease though there was seeding involving the mesentery and peritoneum and omentum throughout. Bulky disease of the omentum was resected with the specimen. I placed the bowel back within the abdomen. Under lap scopic visualization a bilateral tap block was performed I used 60 cc of 0.25% Marcaine mixed with 20 cc of Exparel and visualized laparoscopically bilaterally as the tap block was performed into the plane of the external oblique/internal oblique. This was performed bilaterally. Having accomplished that I inspected for bleeding. The abdomen was irrigated the area of tumor involvement in the right retroperitoneum appear to be hemostatic. The lap pack was removed. The small bowel appeared viable. The abdomen was allowed to deflate of the CO2. The fascial defect and hernia was approximated midline with a running 0 Prolene. Skin edges were ap proximated with interrupted and running septic or 4-0 Monocryl. The gerda- incisional area at the midline incision had also been treated with the local anesthetic mixture. Sponge and instrument and needle counts were reported to the surgeon to be correct. Blood loss generously estimated at 300 cc though likely less. Specimens include the extended right colon with omental bulk. Drains none. The patient was taken to the recovery area in satisfactory condition without apparent complication. The patient is anticipated to a to require intraperitoneal fluid and likely will third space. A Lincoln catheter will be placed to carefully monitor urine output. The ERAS program will need to be modified appropriately. Magdiel Denny M.D., F.A.C.S. Type of Anesthesia:: General Anesthesiologist: Sky Pete - Admit VTE Documentation VTE Present on Admission: No VTE Mechan Device Prophylaxis: SCD's VTE Pharm Prophylaxis ordered?: No Reason prophylaxis not ordered:: Medical Contraindication - Extensive intra- abdominal dissection and tumor bulk placing patient at risk for hemorrhage
[2018-10-20 15:11] LABS: Hematocrit 35.9 % (37-47); Hemoglobin 11.4 g/dl (12.0-15.0); Mean Corp Hgb Conc 31.8 g/gl (32-36); Mean Corpuscular Hgb 28.4 pg (27.0-32.0); Mean Corpuscular Volume 89.3 fL (81-99); Mean Platelet Vol. 10.6 fl (6.2-12.0); Platelet Count 270 K/mm3 (150-450); RBC Distribution Width CV 14.2 % (11.6-14.6); RBC Distribution Width SD 46.3 fl (35.1-43.9); Red Blood Count 4.02 M/mm3 (4.2-5.4); White Blood Count 11.6 K/mm3 (4.4-11.0)
[2018-10-20 15:13] LABS: Scan Indicated on CBC? Y/N NO
[2018-10-20 15:50] LABS: Carcinoembryonic Antigen 17.1 ng/mL (0.0-4.7)
--- NOTE | 2018-10-20 19:16 | PCM.PN.BLA ---
Progress Note Pt doing well Labs stable Pain controlled Good UOP Will moderate IVF Discussed operative findings Will continue care.
[2018-10-20] MEDS: oxyCODONE 5 MG Tablet PO (21:05)
[2018-10-21 00:10] VITALS: BP 99/53; PULSE 81; RESP 18; TEMP 37.6; O2SAT 94
[2018-10-21] MEDS: Acetaminophen 500 MG Tablet 1000 MG PO ×4 (00:11→18:14)
[2018-10-21] MEDS: oxyCODONE 5 MG Tablet PO ×2 (05:07→16:38)
[2018-10-21] MEDS: Lactated Ringers 1,000 ML 40 ML IV (05:08)
[2018-10-21 05:10] VITALS: BP 110/58; PULSE 81; RESP 18; TEMP 37.2; O2SAT 94
--- NOTE | 2018-10-21 05:47 | PCM.PN.SRG ---
Subjective: Pt notes relative comfort. OK at rest. More noticeable with movement. No nausea. No flatus - Physical Exam General: Alert, Oriented x3, Cooperative, No apparent distress Lungs: Clear to auscultation, Normal air movement Cardiovascular: Regular rate, Regular Rhythm Abdomen: Bowel Sounds Present, Soft, Non Tender, Distended - dressing dry,intact Vital Signs Temp Pulse Resp BP Pulse Ox 99 F 81 18 110/58 L 94 10/21/18 05:10 10/21/18 05:10 10/21/18 05:10 10/21/18 05:10 10/21/18 05:10 Oxygen Flow Rate (L/min) 3 Oxygen Delivery Method Room Air Weight: 163 lb 5.8 oz Body Mass Index (BMI) 28.9 Intake and Output for Last 24 Hours 10/19/18 10/20/18 10/21/18 23:59 23:59 23:59 Intake Total 2250 / 2250 895 / 895 Output Total 1200 / 1200 275 / 275 Balance 1050 / 1050 620 / 620 Laboratory Tests Past 24 Hrs 10/20/18 10/20/18 09:00 15:01 WBC 11.6 H RBC 4.02 L Hgb 11.4 L Hct 35.9 L MCV 89.3 MCH 28.4 MCHC 31.8 L RDW 14.2 RDW Differential 46.3 H Plt Count 270 MPV 10.6 Carcinoembryonic Ag 17.1 H POC Glucose 10/20/18 07:49 POC Glucose 131 H Medical Necessity - Tobacco Use Smoking Status: Never smoker Assessment/Plan All Active Problems (Last Reviewed 10/11/18 @ 14:04 by Erika Koo) Colon cancer (Acute) Abdominal mass, right upper quadrant (Acute) Irreducible ventral incisional hernia (Acute) Will keep IVF at 40 Will DC grande and start clears Good progress for the degree of tumor present. Labs pending
[2018-10-21 06:24] LABS: Absolute Lymphocyte Count 1.55 X10^3/ul (0.83-4.51); Absolute Neutrophil Count 7.7 X10^3/uL (2.0-7.7); Basophil# 0.02 X10^3/uL; Basophil% 0.2 % (0-1); Eosinophil# 0.02 X10^3/uL; Eosinophils% 0.2 % (0-5); Hematocrit 36.8 % (37-47); Hemoglobin 11.6 g/dl (12.0-15.0); Lymphocyte # 1.55 X10^3/ul (4.0); Lymphocyte % 14.7 % (19-41); Mean Corp Hgb Conc 31.5 g/gl (32-36); Mean Corpuscular Hgb 28.5 pg (27.0-32.0); Mean Corpuscular Volume 90.4 fL (81-99); Mean Platelet Vol. 10.8 fl (6.2-12.0); Monocyte# 1.18 X10^3/uL; Monocyte% 11.2 % (0-10); Neutrophil # 7.73 X10^3/uL (2.7-7.7); Neutrophil % 73.5 % (47-70); Platelet Count 295 K/mm3 (150-450); RBC Distribution Width CV 14.6 % (11.6-14.6); RBC Distribution Width SD 47.8 fl (35.1-43.9); Red Blood Count 4.07 M/mm3 (4.2-5.4); White Blood Count 10.5 K/mm3 (4.4-11.0)
[2018-10-21 06:25] LABS: Anion Gap 9 (5-15); BUN 5 mg/dL (7-18); BUN/Creat Ratio 7.5 RATIO (10-20); Calcium,Total 8.2 mg/dL (8.5-10.1); Chloride 107 mmol/L (98-107); Creatinine, Serum 0.66 mg/dL (0.55-1.02); EST Glomerular Filtration Rate 93 mL/min (>60); Est Glom Filt Rate - Afr Amer 112 mL/min (>60); Estimated Creatinine Clearance 42.07 ml/min; Glucose 103 mg/dL (74-106); Potassium 3.2 mmol/L (3.5-5.1); Sodium Level 143 mmol/L (136-145)
[2018-10-21 06:31] LABS: POSITIVE COUNT NO; POSITIVE DIFFERENTIAL NO; POSITIVE MORPHOLOGY NO
[2018-10-21] MEDS: Potassium Chloride 10mEq/100mL 10 MEQ/100 ML IV.SOLN. 100 MEQ IV BOLUS ×3 (07:55→11:58)
[2018-10-21] MEDS: Oxybutynin 5 MG Tablet PO ×2 (08:10→21:25)
[2018-10-21] MEDS: Ensure Clear 120 ML Liquid PO ×2 (09:45→16:39)
--- NOTE | 2018-10-21 10:02 | NURSING ---
Ambulated around unit with SMOKE AND FLAME SPECIALIST at this time.
--- NOTE | 2018-10-21 10:21 | CASEMGMT ---
RN CM Assessment Presentation: Lap assisted R colectomy with omentectomy, Ventral incisional herniorrhaphy. Intro role of CM and purpose of RN CM assessment to patient and her in room. Pt is awake, alert and able to participate. Demographics, PCP and Pharmacy verified. PCP: Dr. Gonzalez Specialists: Dr. Goodman Preferred Pharmacy: [facility] Insurance: [facility] Prescription Benefit: yes LNOK: , [place] Living Arrangements: Lives in two story home with her . Pt states she has been independent in ADL and had no care needs. On dc, her . Pt states was able to do stairs safely with cane. Transportation: Drives or can drive DME: cane only HHC: Home Patient DC goals: Home DC PLAN: Home. Pt states has been ambulatory in room and does not have any dc needs at this time. Carolyn WHIPPLE RN ACM
[2018-10-21 10:44] VITALS: BP 112/68; PULSE 85; RESP 16; TEMP 36.4; O2SAT 96
[2018-10-21 14:28] VITALS: BP 125/69; PULSE 75; RESP 18; TEMP 36.6; O2SAT 95
[2018-10-21 20:17] VITALS: BP 105/50; PULSE 88; RESP 18; TEMP 36.8; O2SAT 94
[2018-10-22] MEDS: Acetaminophen 500 MG Tablet 1000 MG PO ×2 (02:12→07:00)
[2018-10-22 02:17] VITALS: BP 103/60; PULSE 80; RESP 18; TEMP 37.2; O2SAT 94
[2018-10-22] MEDS: oxyCODONE 5 MG Tablet PO ×2 (03:58→11:26)
--- NOTE | 2018-10-22 06:02 | PCM.PN.SRG ---
Subjective: Pt comfortable, stool and flatus, no nausea - Physical Exam Abdomen: Bowel Sounds Present, Soft, Non Tender, Distended - wound: slight ecchymosis Vital Signs Temp Pulse Resp BP Pulse Ox 99 F 80 18 103/60 94 10/22/18 02:17 10/22/18 02:17 10/22/18 02:17 10/22/18 02:17 10/22/18 02:17 Oxygen Flow Rate (L/min) 3 Oxygen Delivery Method Room Air Weight: 163 lb 5.8 oz Body Mass Index (BMI) 28.9 Intake and Output for Last 24 Hours 10/20/18 10/21/18 10/22/18 23:59 23:59 23:59 Intake Total 2250 / 2250 3453 / 3453 Output Total 1200 / 1200 1050 / 1050 Balance 1050 / 1050 2403 / 2403 Laboratory Tests Past 24 Hrs 10/21/18 10/21/18 06:00 06:00 WBC 10.5 RBC 4.07 L Hgb 11.6 L Hct 36.8 L MCV 90.4 MCH 28.5 MCHC 31.5 L RDW 14.6 RDW Differential 47.8 H Plt Count 295 MPV 10.8 Immature Gran % (Auto) 0.200 Neut % (Auto) 73.5 H Lymph % (Auto) 14.7 L [place] % (Auto) 11.2 H Eos % (Auto) 0.2 Baso % (Auto) 0.2 Absolute Neuts (auto) 7.7 Absolute Lymphs (auto) 1.55 Total Counted Not Reportable Sodium 143 Potassium 3.2 L Chloride 107 Carbon Dioxide 27.0 Anion Gap 9 BUN 5 L Creatinine 0.66 Estim Creat Clear Calc 42.07 Est GFR (MDRD) Af Amer 112 Est GFR (MDRD) Non-Af 93 BUN/Creatinine Ratio 7.5 L Glucose 103 Calcium 8.2 L Medical Necessity - Tobacco Use Smoking Status: Never smoker Assessment/Plan All Active Problems (Last Reviewed 10/11/18 @ 14:04 by Erika Koo) Colon cancer (Acute) Abdominal mass, right upper quadrant (Acute) Irreducible ventral incisional hernia (Acute) Plan discharge today Very good progress
[2018-10-22 08:17] VITALS: BP 103/56; PULSE 77; RESP 16; TEMP 36.8; O2SAT 94
[2018-10-22] MEDS: Oxybutynin 5 MG Tablet PO (08:52)
== END 2018-10-22 11:52 | disposition home or self-care (01) | DRG 330 ==
LOC: ACINP 07:34 → MS2 09:12
PROVIDERS: Admitting Provider Surgery; Family Provider Family Medicine; PCP Family Medicine; Referring Provider Surgery; Visit Provider Surgery
PROC: 0DBL0ZZ Excision of Transverse Colon, Open Approach (ICD-10-PCS; CPT 44205; principal; 2018-10-20 09:00)
DX: C18.2 Malignant neoplasm of ascending colon (principal); C78.7 Secondary malignant neoplasm of liver and intrahepatic bile duct; C77.9 Secondary and unspecified malignant neoplasm of lymph node, unspecified; K43.0 Incisional hernia with obstruction, without gangrene; C7A.1 Malignant poorly differentiated neuroendocrine tumors; E66.9 Obesity, unspecified; Z68.28 Body mass index [BMI] 28.0-28.9, adult
CPT/HCPCS: 36415; 71046; 80048; 80053; 82378; 82962; 85025; 85027; 88309; 88341; 88342; 93005; J7050; J7120; J2405

== ENCOUNTER → 2018-11-02 10:17 | Outpatient (CLI) | payer MEDICARE, OTHER, SELFPAY ==
[2018-10-28 10:01] VITALS: BMI 28.7
[2018-11-01 14:37] VITALS: BMI 28.7
--- NOTE | 2018-11-02 10:20 | NM_ITS ---
CLINICAL: 73-year-old female with reported history of colorectal carcinoma. WHOLE BODY 99m Tc MDP RADIONUCLIDE BONE SCINTIGRAPHY COMPARISON: CT of the abdomen-pelvis report 10/12/2018 FINDINGS: Following the intravenous administration of 26.1 mCi of 99m Tc MDP, whole body bone images reveal: 1. Increased radiopharmaceutical concentration is identified in the inferior border of the right scapula, the proximal sternum-manubrium. 2. Enhanced tracer uptake is visualized in the acromioclavicular and sternoclavicular compartments of both shoulders, bilateral elbows and right-left wrists, knees bilaterally, the left ankle, right midfoot, the forefoot bilaterally, eighth-ninth thoracic, the fifth lumbar vertebra, posterior midline sacrum. 3. The remaining skeletal structures are scintigraphically unremarkable with the bilateral renal images and urinary bladder activity identified. Increased tracer distribution is noted in the acetabular component of the left, distal femoral component of the right and intertrochanteric aspects of the bilateral presumably asymptomatic hip arthroplasties most consistent with normal postsurgical change. Asymmetric increased uptake is noted in the right proximal tibial metaphysis-lateral tibial plateau most consistent with periostitis. NM/Bone Scan Whole Body IMPRESSION: 1. The increase in radiopharmaceutical concentration identified in the right scapula and proximal sternum may be further investigated with plain film radiography in the setting of known colorectal carcinoma. 2. Degenerative arthritis appears expressed in the bilateral shoulder elbow and wrist articulations, right-left knees, the left ankle, right midfoot, forefoot bilaterally, the thoracic and lumbar spine, posterior midline sacrum. Plain film x-ray may also be of benefit in the region of the lower thoracic spine. Electronically Signed: Madan Rome DO at 9:57 EDT Tel , Service support ,
== END ==
PROVIDERS: Family Provider Family Medicine; PCP Family Medicine; Referring Provider Internal Medicine Hematology & Oncology; Visit Provider Internal Medicine Hematology & Oncology
DX: C77.9 Secondary and unspecified malignant neoplasm of lymph node, unspecified (principal); C78.6 Secondary malignant neoplasm of retroperitoneum and peritoneum; C7A.8 Other malignant neuroendocrine tumors
CPT/HCPCS: 78306

== ENCOUNTER → 2018-11-08 | Outpatient (CLI) | payer MEDICARE, OTHER, SELFPAY ==
[2018-10-28 10:01] VITALS: BMI 28.7
[2018-11-01 14:37] VITALS: BMI 28.7
--- NOTE | 2018-11-08 14:34 | RAD_ITS ---
HISTORY: COLON CA EXAM: Abdomen acute series with chest. COMPARISON: October 19, 2018 FINDINGS: # of images incl. paperwork: 3 Heart silhouette and mediastinal contours are normal. 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 More focal area of nodules, likely benign calcified nodules within the right upper lung are similar.. Bilateral pleural effusions are suspected, right greater than left. Atherosclerotic plaque within the aortic arch is similar. Previous fixation of the left femoral neck fracture with hardware in place is unchanged.. Gentle levoscoliosis to the lumbar spine was suggested to be present on the previous chest x-ray, which did not image as well. Bilateral femoral head arthroplasties. Surgical anastomosis lines within the left hemiabdomen. Mostly gasless rectum and sigmoid. Gas and stool within the descending colon is slightly greater above the anastomotic clips them below No free air is present under the diaphragm. No osseous abnormalities are demonstrated. Bowel-gas pattern is normal. No organomegaly is present. RAD/Acute Abdomen Inc Chest IMPRESSION: No definitive acute disease perceived. There is minimal gaseous distention of the splenic flexure of colon with stool within the descending colon. This stool within the descending colon stops at the level of metallic anastomoses within the left hemiabdomen. It is possible that there is a colonic stenosis at the anastomosis whether due to the anastomotic stricture or recurrent malignancy. It is probable if there is a stenosis within this region that it is only partial as the degree of distention of colon and stool above this level is not pathologic. Therefore, it could also be normal. Osteopenia. Fibrotic lung disease.. at 2976 Reported and signed by: Dao Camargo MD Electronically Signed: Dao Camargo MD at 4:35 EDT Tel , Service support ,
--- NOTE | 2018-11-08 14:34 | CT_ITS ---
HISTORY: NEW DX COLON CA---STAGINGNO TREATMENTS TECHNIQUE: Helically acquired images were obtained of the chest following the intravenous administration of 100CC ml of Isovue 300 Iodinated contrast. as per pulmonary angiogram protocol with 2D MIP reconstructions. A radiation dose optimization technique was used for this scan. COMPARISON: CT scan of the abdomen and pelvis from October 12, 2018, and a nuclear medicine bone scan from November 02, 2018. FINDINGS: # of images incl. paperwork: 736 Some calcified nodules are present within the right upper lobe. Near this calcified nodules there are a few noncalcified nodules area The calcified nodules outnumber the noncalcified nodules. Sitting on the fissure between the left and upper and lower lobes there is a 4 x 2 mm parenchymal nodule that is likely benign. Lungs are clear but for trace basilar atelectasis. Tiny bilateral pleural effusions. Within the thoracic spinethere is a kyphosis. Minimal wedging of the midthoracic vertebral bodies. Multilevel degenerative disc disease. This disc disease is manifested by loss of disc height, endplate sclerosis, and small enthesophytes Vertebral body height mostly preserved Facets are well aligned. There is an old left mid axillary healed eighth rib fracture. Heart is enlarged. Thoracic aorta elongated with calcific atherosclerotic plaque. No aneurysms, stenoses, dissections, nor occlusions. No axillary adenopathy. No mediastinal adenopathy., However, there is a right-sided pericardiophrenic pathologic lymph node measuring 26 by 15 mm. A second pathologic pericardiophrenic lymph node is present more posteriorly measuring 7 x 14 mm. There is some scarring medially within the right middle lobe. Some right hilar benign calcified lymph nodes coincide with the right upper lobe benign calcified pulmonary nodules Although no pulmonary emboli are demonstrated, the timing the contrast bolus is more optimized for the thoracic aorta and the pulmonary veins than it is for the pulmonary arteries. Is decreased the overall utility of the study. Hepatic metastasis are present. The liver is not completely imaged. Abdominal ascites. Heterogeneous enhancement of the spleen is likely due to the early timing of the contrast bolus rather than splenic lesions. The adrenal glands are incompletely imaged. The stomach is decompressed CT/Chest WITH Contrast IMPRESSION: No pulmonary embolism, aortic aneurysm, or aortic dissection. Pericardiophrenic lymphadenopathy suggestive of supradiaphragmatic metastasis. The largest of these lymph nodes, above the diaphragm, measures 26 x 15 mm Multiple pulmonary nodules. Mostly these are in the right upper lobe. The majority of these nodules, the largest of these nodules are calcified. There is some right hilar benign calcified lymphadenopathy. The other pulmonary nodules within the right upper lobe are likely benign Granulomas, even without calcification, rather than pulmonary metastasis. There are small pleural effusions, but there are no other pulmonary nodules. Hepatic metastasis with ascites. Individualized dose optimization techniques were used for this CT. at 0451 Reported and signed by: Dao Camargo MD Electronically Signed: Dao Camargo MD at 4:49 EDT Tel , Service support ,
--- NOTE | 2018-11-08 14:45 | RAD_ITS ---
HISTORY: HX OF COLON CA EXAM: Pelvis COMPARISON: Whole body bone scan from November 02, 2018. CT scan of the abdomen and pelvis from October 12, 2018. FINDINGS: # of images incl. paperwork: 1 Bilateral total hip arthroplasties. A cerclage wire around the right femoral metaphysis. Osteopenia. Hyperostotic bone above the right acetabulum and the prosthesis. Pelvic phleboliths. Left hemiabdomen anastomotic staple lines. Some degenerative disc disease and facet arthropathy. Disease is similar to the previous study. RAD/Pelvis 1 or 2 Views IMPRESSION: No acute disease. at 0440 Reported and signed by: Dao Camargo MD Electronically Signed: Dao Camargo MD at 4:39 EDT Tel , Service support ,
== END | disposition home or self-care (01) ==
LOC: CT 14:33
PROVIDERS: Family Provider Family Medicine; PCP Family Medicine; Referring Provider Internal Medicine Hematology & Oncology; Visit Provider Internal Medicine Hematology & Oncology
DX: C78.6 Secondary malignant neoplasm of retroperitoneum and peritoneum (principal); C78.7 Secondary malignant neoplasm of liver and intrahepatic bile duct; C7A.8 Other malignant neuroendocrine tumors; C7B.8 Other secondary neuroendocrine tumors; C80.1 Malignant (primary) neoplasm, unspecified; R93.89 Abnormal findings on diagnostic imaging of other specified body structures; C77.9 Secondary and unspecified malignant neoplasm of lymph node, unspecified
CPT/HCPCS: 71260; 72170; 74022; Q9967

== ENCOUNTER → 2018-11-16 | Outpatient (CLI) | payer MEDICARE, OTHER, SELFPAY ==
[2018-11-11 11:36] VITALS: BMI 28.1
--- NOTE | 2018-11-16 14:17 | RAD_ITS ---
STUDY: X-RAY - THORACIC SPINE REASON FOR EXAM: Female, 73 years old. Abnormal bone scan TECHNIQUE: 4 view(s) of the thoracic spine were obtained. COMPARISON: Bone scan dated 11/02/2018 FINDINGS: There is no evidence of fracture or dislocation in the thoracic spine. The vertebral body heights are well-maintained. There are [id number]-[id number] degenerative changes. No definite metastatic lesion is identified. RAD/Thoracic Spine 3 Views IMPRESSION: No fracture or dislocation in the thoracic spine. [id number]-[id number] degenerative changes. No definite metastatic lesion identified. Electronically Signed: Rogers Tinoco, at 15:12 EDT Tel , Service support ,
--- NOTE | 2018-11-16 14:17 | RAD_ITS ---
STUDY: X-RAY STERNUM REASON FOR EXAM: Female, 73 years old. Abnormal bone scan TECHNIQUE: 4 view(s) of the sternum were obtained. COMPARISON: Bone scan dated 11/02/2018 FINDINGS: There is no sternal fracture identified. No definite metastatic lesion is identified. There is no displaced rib fracture identified. The visualized lung apices are clear. The visualized soft tissues are unremarkable. RAD/Sternum min 2 Views IMPRESSION: No sternal fracture identified. No definite metastatic lesion identified. Electronically Signed: Rogers Tinoco, at 15:16 EDT Tel , Service support ,
--- NOTE | 2018-11-16 14:20 | RAD_ITS ---
STUDY: X-RAY - RIGHT SCAPULA REASON FOR EXAM: Female, 73 years old. Abnormal bone scan TECHNIQUE: Bone scan dated 07/19/2018 view(s) of the scapula were obtained. COMPARISON: None. FINDINGS: There is no evidence of fracture or dislocation. There are mild degenerative changes. No definite metastatic lesion is identified. There are no radiodense foreign bodies. RAD/Scapula IMPRESSION: No fracture or dislocation. Mild degenerative changes. No definite metastatic lesion identified. Electronically Signed: Rogers Tinoco, at 15:20 EDT Tel , Service support ,
== END | disposition home or self-care (01) ==
LOC: RAD 14:16
PROVIDERS: Family Provider Family Medicine; PCP Family Medicine; Referring Provider Internal Medicine Hematology & Oncology; Visit Provider Internal Medicine Hematology & Oncology
DX: C78.7 Secondary malignant neoplasm of liver and intrahepatic bile duct (principal); C7A.8 Other malignant neuroendocrine tumors; C7B.8 Other secondary neuroendocrine tumors; C77.9 Secondary and unspecified malignant neoplasm of lymph node, unspecified; R93.89 Abnormal findings on diagnostic imaging of other specified body structures
CPT/HCPCS: 71120; 72072; 73010

== ENCOUNTER 2018-11-17 08:29 | Day surgery (SDC) | payer MEDICARE, OTHER, SELFPAY ==
--- NOTE | 2018-11-01 02:37 | HP_ITS ---
Intake Intake Visit Reasons: Abdominal Tumor Chief Complaint: Colon cancer, newly diagnosed Allergies No Known Allergies Allergy (Verified 10/28/18 09:56) Medications Ascorbic Acid [Vitamin C] 2,000 mg PO DAILY@0800 05/29/15 [History Confirmed 10/28/18] Multivitamin [Daily Multiple Vitamin] 1 ea PO DAILY 05/29/15 [History Confirmed 10/28/18] Cholecalciferol (Vitamin D3) [Vitamin D3] 2,000 unit PO DAILY 09/25/17 [History Confirmed 10/28/18] oxybutynin chloride 5 mg tablet 5 mg PO BID tab 10/11/18 [History Confirmed 10/28/18] Aspirin 325 mg PO BIDCM PRN 10/19/18 [History Confirmed 10/28/18] Acetaminophen [Tylenol Extra Strength] 500 mg PO Q6H PRN PRN 10/28/18 [History Confirmed 10/28/18] Hydrocodone/Acetaminophen [Hydrocodon-Acetaminophen 5-325] 1 ea PO Q4H PRN PRN 10/28/18 [History Confirmed 10/28/18] PFSH Medical History Abdominal mass, right upper quadrant (Acute) Irreducible ventral incisional hernia (Acute) Urinary incontinence (Chronic) Fracture of left humerus (Acute) Umbilical hernia (Acute) irregular bowel patterns (Acute) Surgical History History of colonoscopy (Acute ~09/2018) History of total bilateral knee replacement (Acute) S/P right hemicolectomy (Acute) Family History Mother Ovarian cancer Breast cancer Leukemia Unknown Neurofibromatosis Social History Smoking Status: Never smoker alcohol intake: never substance use type: does not use HPI HPI HPI: TANNER DAVALOS, is a 73 F who presents to the office today for HPI HPI Surgical H&P: Yes HPI: TANNER DAVALOS, is a 73 F who presents to the office today for surgical follow-up status post a hand-assisted right colectomy for what ends up being a metastatic neuroendocrine carcinoma of the ascending colon with omental metastasis and peritoneal carcinomatosis and regional lymph node metastasis and liver metastasis. She is otherwise performing okay subsequent to such a surgical procedure. I am very pleased that we have not had any signs of infection or anastomotic leak. The patient has been kindly seen by and a further metastatic work-up is being pursued Exam Const General: cooperative Nutritional Appearance: average body habitus Orientation: alert, awake, oriented x3 HENMT Head: normal to inspection Resp Effort & Inspection: normal respiratory effort Auscultation: clear to auscultation bilaterally Cardio Rate: regular rate Rhythm: regular rhythm GI Other: Soft, healing colectomy incisions with no signs of infection, firmness at the umbilical site at the site of the hernia where omentum was adherent and metastatic disease was present, normal bowel sounds Neuro General: alert Extrem General: no calf tenderness bilaterally Psych Affect: normal affect Assessment & Plan Problems 1. Neuroendocrine carcinoma of colon C7A.8 Plan Clearly this metastatic process emanating from the right colon has poor long- term prognosis. I request has been made for port placement to facilitate chemotherapy. I have discussed with the patient today placement of a right internal jugular port and we are aware of the technique, benefit, risks, alternatives. The patient has up coming metastatic work-up. She is aware that I will be out of town for [address] this port immediately upon my return. She has had an opting to ask and have questions answered and we will continue to help facilitate her surgical care CC: Dr. Lisy Rangel and Dr. Annemarie Denny M.D., F.A.C.S. Coding Level of Care Code Global Post Op Diagnoses Neuroendocrine carcinoma of colon C7A.8 11/01/18 9867 <Electronically signed by Magdiel leonard MD> Date _ Magdiel Denny MD I have re-examined the patient. There are no clinical changes since date of exam.
[2018-11-01 14:37] VITALS: BMI 28.7
[2018-11-11 11:36] VITALS: BMI 28.1
[2018-11-17 08:53] VITALS: BP 136/73; PULSE 83; RESP 18; TEMP 37.1; O2SAT 94; BMI 27.1
[2018-11-17 08:58] LABS: Hematocrit 37.1 % (37-47); Hemoglobin 11.7 g/dl (12.0-15.0); Mean Corp Hgb Conc 31.5 g/gl (32-36); Mean Corpuscular Hgb 27.2 pg (27.0-32.0); Mean Corpuscular Volume 86.3 fL (81-99); Platelet Count 362 K/mm3 (150-450); RBC Distribution Width CV 15.1 % (11.6-14.6); RBC Distribution Width SD 46.4 fl (35.1-43.9); White Blood Count 9.4 K/mm3 (4.4-11.0)
[2018-11-17 08:59] LABS: Scan Indicated on CBC? Y/N NO
--- NOTE | 2018-11-17 11:33 | DCINST_ITS ---
Discharge Diet: No Restrictions - Pain medication may cause nausea. You should typically eat light foods as you take your pain medication. Discharge Activity: Return to Normal Activity, May Shower - Leave the bandage on for 2-3 days. Remove the opcite in 2-3 days and then leave the steri strips on for one week please. Additional Activity Instructions:: May not drive, work with heavy equipment, or sign legal documents for [address] if you are no longer taking narcotic pain medications. You may drive when you are no longer taking pain medications. Allergies/Adverse Reactions: Allergies No Known Allergies Allergy (Verified 11/11/18 11:34) Medications to take at Discharge RX: Ascorbic Acid [Vitamin C] 2,000 mg PO DAILY@0800 05/29/15 RX: Multivitamin [Daily Multiple Vitamin] 1 ea PO DAILY 05/29/15 RX: Cholecalciferol (Vitamin D3) [Vitamin D3] 2,000 unit PO DAILY 09/25/17 oxybutynin chloride 5 mg tablet 5 mg PO BID tab 10/11/18 Acetaminophen [Tylenol Extra Strength] 500 mg PO Q6H PRN PRN 10/28/18 Hydrocodone/Acetaminophen [Hydrocodon-Acetaminophen 5-325] 1 each PO Q4H PRN PRN 10/28/18 Lidocaine/Prilocaine [Lidocaine-Prilocaine Cream] 1 applic TP DAILY PRN PRN 30 Days #1 tube 11/11/18 Ondansetron [Ondansetron Odt] 8 mg PO Q8H PRN PRN 10 Days #30 tab.rapdis 11/11/18 RX: Prochlorperazine Maleate 10 mg PO Q6H PRN PRN 10 Days #30 tab 11/11/18 Primary Care Physician: Lisy Rangel MD [Primary Care Provider] - Test Results: Test results from this visit will be discussed in further detail at your follow- up appointment, if applicable. Please Follow Up With: Magdiel Denny MD - [phone] When: Further office visit can be as needed. Please call for any difficulties
[2018-11-17] MEDS: Cefazolin 2 GM in 0.9% Normal Saline 100 ML IV (11:35)
[2018-11-17] MEDS: Bupivacaine Mpf 0.5% 30 ML VIAL (11:48)
--- NOTE | 2018-11-17 12:08 | OP.PCM_ITS ---
Problem List (1) Neuroendocrine carcinoma of colon Status: Acute Report of Operation Date of Procedure: 11/17/18 Pre-Operative Diagnosis: Neuro endocrine carcinoma of the colon Post-Operative Diagnosis: Same with known metastatic disease Surgery/Procedure Performed:: Right internal jugular 6 Hungarian PowerPort placement. Reference #[id number]. Lot number [id number]. Expiry date 10/23/2019 Description of Surgical Findings:: Timeout and informed consent was obtained. 73-year-old female stepped out from placement table underwent monitored anesthesia care. Ancef 2 g intravenously preoperatively. Right neck and chest were sterilely prepped and draped. 1% lidocaine mixed 50-50 with 0.5% Marcaine was used as local anesthetic. Total of 20 cc was used. Under ultrasound guidance local was instilled in the right neck and a micropuncture needle was inserted to the right internal jugular vein under ultrasound guidance micropuncture wire easily advanced and confirmed with fluoroscopy. Local was instilled down upon the right anterior chest wall. Total of 20 cc was used. A transverse incision made right midclavicular line second intercostal space and then using electrocautery a subcutaneous pocket was created. The tubing was tunneled from the chest of the neck site. Sheath dilator was placed over the micropuncture wire and exchanged out for now 3 5 J- wire. Dilator was inserted. Wire and dilator were removed. The catheter advanced through the sheath. The sheath was split. Using fluoroscopy the catheter was positioned at the SVC atrial junction. It was amputated at length and connected to the port and secured with port attachment device. The port was placed in the pocket and secured there with interrupted 2-0 silk. The port site was closed with interrupted 3-0 Vicryl subdermal stitches. The neck counterincision closed with interrupted 5-0 Vicryl subdermal stitch. Steri- Strips Telfa and OpSite dressings applied. The port was accessed and aspirated easily it was flushed with 10 cc of saline and then 2 cc of heparinized saline. Sponge and instrument and needle counts were reported that her to be correct. Blood loss minimal. No specimens. No drains. The patient was taken to the recovery area in satisfactory condition without apparent complication. Stat portable chest x-ray is pending. Magdiel Denny M.D., F.A.C.S. Type of Anesthesia:: Local MAC Anesthesiologist: Kathleen Brewer
[2018-11-17 12:15] VITALS: BP 114/69; BP 136/73; PULSE 76; RESP 12; TEMP 36.6; O2SAT 92
[2018-11-17 12:20] VITALS: BP 115/67; BP 136/73; PULSE 74; RESP 15; O2SAT 92
--- NOTE | 2018-11-17 12:20 | RAD_ITS ---
STUDY: X-RAY CHEST REASON FOR EXAM: Female, 73 years old. Postop port placement. TECHNIQUE: Single AP portable upright view of the chest. COMPARISON: Frontal chest x-ray included with acute abdomen series November 08, 2018. FINDINGS: A new Port-A-Cath hub overlaps the left mid hemithorax. The catheter loops at the base of the right neck, its tip in the superior vena cava. No pneumothorax. The lungs are not as fully expanded today. Calcified granuloma again noted in the right midlung, but there is no acute pneumonic infiltrate. A pleural effusion now blunts the lateral left costophrenic sulcus. Normal size heart. Normal mediastinum and reed. Normal visualized pulmonary arteries. There is stable atherosclerotic calcification of the aortic arch. There are stable minor degenerative changes of the visualized thoracic spine. There is degenerative osteoarthritis of the bilateral shoulders. Prior ORIF of a proximal left humeral fracture with metal hardware again noted. There is no demonstrated abnormality of the visualized soft tissue structures of the upper abdomen. RAD/CXR for Line Placement IMPRESSION: 1. Right sided Port-A-Cath now in place. No pneumothorax. 2. Small left pleural effusion now present. 3. Findings old right calcific granulomatous disease again noted. Electronically Signed: Conrad Willett MD at 13:04 EDT , Service support ,
[2018-11-17 12:25] VITALS: BP 117/70; BP 136/73; PULSE 72; RESP 16; O2SAT 94
[2018-11-17 12:32] VITALS: BP 107/67; BP 136/73; PULSE 74; RESP 16; TEMP 37; O2SAT 96
[2018-11-17 13:28] VITALS: BP 136/73
== END 2018-11-17 13:31 | disposition home or self-care (01) ==
LOC: SDC 08:30 → AC 08:31
PROVIDERS: Family Provider Family Medicine; PCP Family Medicine; Referring Provider Surgery; Visit Provider Surgery
PROC: (CPT 36571; principal; 2018-11-17 10:00)
DX: C18.2 Malignant neoplasm of ascending colon (principal); C78.6 Secondary malignant neoplasm of retroperitoneum and peritoneum; C78.7 Secondary malignant neoplasm of liver and intrahepatic bile duct; C77.9 Secondary and unspecified malignant neoplasm of lymph node, unspecified; Z90.49 Acquired absence of other specified parts of digestive tract
CPT/HCPCS: 00532; 36571; 36415; 71045; 77001; 85027; J7120

== ENCOUNTER 2018-12-01 12:25 | Inpatient (IN) | payer MEDICARE, OTHER, SELFPAY ==
[2018-11-24 14:31] VITALS: BMI 28.0
[2018-12-01] VITALS (14 sets, daily range): BP systolic 113–133; BP diastolic 50–66; PULSE 92–105; RESP 16–28; TEMP 36.4–37.4; O2SAT 89–100; BMI 28.5; BMI 27.3; BMI 27.4
--- NOTE | 2018-12-01 12:38 | ED.VIS.GEN ---
History of Present Illness Chief Complaint: Nausea/Vomiting Informant: Patient, Family Onset: Days Context: Gradual Onset Timing: Continuous Quality: Loss of appetite, vomiting, abdominal distention and pain Location: Abdomen Current Severity: Mild Maximum Severity: Moderate Worsened by: Movement Relieved by: Nothing Associated Symptoms: No bowel movement in several days Narrative: Patient is an elderly woman who was diagnosed September 2018 with neuroendocrine tumor with metastasis to omentum, peritoneum and lungs. She received immunotherapy last Thursday and Thursday and chemotherapy this past Thursday. She denies fever or chills. She does complain of thirst, dry mouth and decreased urine output. She also reports generalized weakness. She denies headache. She denies visual, ocular auditory symptoms. She denies chest pain or shortness of breath. She was not given a prognosis. Plan was round of chemotherapy and repeat scan. 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 Denies: Chills, Fever, Sweats Eyes: Denies: Visual changes - bilaterally, Blurred Vision - bilaterally, Diplopia ENT: Denies: Bilateral ear pain, Rhinorrhea, Sore throat Cardiovascular: Denies: Chest pain, Palpitations Respiratory: Denies: Dyspnea, Cough, Dyspnea on exertion Gastrointestinal: Reports: Abdominal pain, Nausea, Vomiting - Emesis appears dark green. No coffee grounds noted. No blood noted., Constipation. Denies: Diarrhea, Melena, Hematochezia Genitourinary: Denies: Dysuria, Hematuria, Frequency Musculoskeletal: Denies: Myalgias, Arthralgias, Neck pain, Back pain, Extremity Pain Skin: Denies: Rash, Wounds Neurological: Reports: Weakness. Denies: Headache, Parasthesia, Numbness Hematologic: Denies: Easy bruising, Easy bleeding Physical Exam Vital Signs/Narrative: Vital Signs Temp Pulse Resp BP Pulse Ox 12/01/18 12:26 98.5 F 101 H 28 H 125/63 H 89 Inital Vital Signs reviewed: Yes General: Well developed, No Acute Distress - She does not appear well and appears pale. Head: Normocephalic, Atraumatic Eyes: Perrl, EOMI. Negative for: Pale conjunctiva, Scleral icterus ENT: No rhinorrhea, TM's clear, Dry mucous membranes Neck: Supple, Nontender, No lymphadenopathy, No JVD, - Cardiovascular: Regular rate, Regular rhythm, No murmurs, Normal S1, Normal S2 Respiratory: No distress, CTA bilaterally, Chest nontender Abdomen: Soft, Tender, Hypoactive bowel sounds. Negative for: Nontender, Nondistended, Normal bowel sounds Rectal: Negative for: - Back: Nontender, Normal Inspection Extremities: Nontender, No edema Skin: No rash, No Trauma, Pallor. Negative for: Cyanosis, Diaphoresis, Jaundice Neurological: Alert, Oriented x3, Cranial nerves II-XII grossly intact, Normal Strength, Normal Sensation Psychological: Normal affect, Normal Mood Diagnostic/Tx/Re-eval Chest X-Ray - ED: - - View x-ray of the abdomen reveals scarring possible effusion left lower lobe. There is air-fluid levels however there is no edema to the small bowel wall or obvious distention. May represent ileus versus partial small bowel obstruction. Will obtain CT. Impressions Acute Abdomen Series 12/01/18 13:25 IMPRESSION: Findings suggestive of an ileus gas pattern. Left lower lobe atelectasis/infiltrate with a small left pleural effusion. Electronically Signed: Benjamin Mijares, at 14:01 EDT , Service support , 12/01/18 13:25 Acute Abdomen Inc Chest [RAD] Stat 12/01/18 14:24 Abdomen/Pelvis without Cont [CT] Stat Laboratory Results 12/01/18 12/01/18 12/01/18 12:36 12:36 12:36 WBC 0.3 L* RBC 3.50 L Hgb 9.2 L Hct 29.8 L MCV 85.1 MCH 26.3 L MCHC 30.9 L RDW 15.6 H RDW Differential 48.9 H Plt Count 81 L MPV 9.8 Immature Gran % (Auto) 0.000 Neut % (Auto) 3.5 L Lymph % (Auto) 78.6 H Ector % (Auto) 14.3 H Eos % (Auto) 0.0 Baso % (Auto) 3.6 H Absolute Neuts (auto) 0.0 L Absolute Lymphs (auto) 0.22 L Total Counted Not Reportable Diff Path Review May foll Platelet Estimate ADEQUATE RBC Morphology N CYTIC Hypochromasia 2+ Sodium 138 Potassium 3.6 Chloride 101 Carbon Dioxide 28.0 Anion Gap 9 BUN 16 Creatinine 0.49 L Estim Creat Clear Calc 43.91 Est GFR (MDRD) Af Amer 159 Est GFR (MDRD) Non-Af 132 BUN/Creatinine Ratio 32.7 H Glucose 82 Lactic Acid 0.9 Calcium 8.2 L Total Bilirubin 0.80 AST 19 ALT 16 Alkaline Phosphatase 554 H Total Protein 6.6 Albumin 1.7 L Globulin 4.9 H Albumin/Globulin Ratio 0.3 L - Medical Decision Making With history of metastatic neuroendocrine tumor to lung, liver, peritoneum, omentum and complaint of nausea vomiting with abdominal distention and pain and x-ray was obtained to assess for obstruction. Clinically she is dehydrated and will receive 1 L of normal saline. She was administered 4 mg of Zofran for her nausea and vomiting 4 mg of morphine for her pain. Blood work was obtained to assess electrolytes, CO2 and anion gap as well as renal function. Clinically she appears pale and reason for CBC. Spoke with radiologist regarding CAT scan. Patient has bilateral pleural effusion. Infiltrate left lower lobe. Ascites and metastatic cancer. No evidence of obstruction. Blood culture was obtained as well as lactate. Patient was started on Zosyn and vancomycin. Case was discussed Dr. Nagel. He states from a surgical standpoint there is nothing more he can offer. Patient requested that he see her. Hospitalist has been paged for admission. DNR [employer] arrest document completed by me. Patient specifically wants no CPR, no intubation and no pressors. Case management saw patient. Pill of care will see patient in hospital. ED Disposition - Plan for ED Patient: Disposition: Acute Care Hospital [facility] Diagnosis: Left lower lobe pneumonia, Neutropenia associated with infection, Ileus Referrals: Lisy Rangel MD [Primary Care Provider] -
[2018-12-01] MEDS: 0.9% Normal Saline 1,000 ML 1000 ML IV (13:00)
[2018-12-01] MEDS: Ondansetron 4 MG/2 ML Vial IV (13:00)
[2018-12-01] MEDS: Morphine 4 MG/ML Syringe IV (13:03)
[2018-12-01 13:16] LABS: ALB/GLOB Ratio 0.3 RATIO (0.9-2.4); AST(SGOT) 19 U/L (15-37); Alanine Aminotransfer ALT/SGPT 16 U/L (13-56); Albumin, Serum 1.7 g/dL (3.2-5.0); Alkaline Phosphatase 554 U/L (45-117); Anion Gap 9 (5-15); BUN 16 mg/dL (7-18); BUN/Creat Ratio 32.7 RATIO (10-20); Calcium,Total 8.2 mg/dL (8.5-10.1); Chloride 101 mmol/L (98-107); Creatinine, Serum 0.49 mg/dL (0.55-1.02); EST Glomerular Filtration Rate 132 mL/min (>60); Est Glom Filt Rate - Afr Amer 159 mL/min (>60); Estimated Creatinine Clearance 43.91 ml/min; Globulin 4.9 g/dL (2.2-4.2); Glucose 82 mg/dL (74-106); Potassium 3.6 mmol/L (3.5-5.1); Protein, Total 6.6 g/dL (6.4-8.2); Sodium Level 138 mmol/L (136-145)
[2018-12-01 13:24] LABS: Absolute Lymphocyte Count 0.22 X10^3/ul (0.83-4.51); Basophil# 0.01 X10^3/uL; Basophil% 3.6 % (0-1); Hematocrit 29.8 % (37-47); Hemoglobin 9.2 g/dl (12.0-15.0); Lymphocyte # 0.22 X10^3/ul (4.0); Lymphocyte % 78.6 % (19-41); Mean Corp Hgb Conc 30.9 g/gl (32-36); Mean Corpuscular Hgb 26.3 pg (27.0-32.0); Mean Corpuscular Volume 85.1 fL (81-99); Mean Platelet Vol. 9.8 fl (6.2-12.0); Monocyte# 0.04 X10^3/uL; Monocyte% 14.3 % (0-10); Neutrophil # 0.01 X10^3/uL (2.7-7.7); Neutrophil % 3.5 % (47-70); Platelet Count 81 K/mm3 (150-450); RBC Distribution Width CV 15.6 % (11.6-14.6); RBC Distribution Width SD 48.9 fl (35.1-43.9); White Blood Count 0.3 K/mm3 (4.4-11.0)
--- NOTE | 2018-12-01 13:25 | RAD_ITS ---
STUDY: X-RAY - ACUTE ABDOMINAL SERIES REASON FOR EXAM: Female, 73 years old. Abdominal pain and distention. Nausea and vomiting. History of metastatic carcinoma. TECHNIQUE: Single view of the chest. Supine, and decubitus view(s) of the abdomen were obtained. COMPARISON: Comparison is made with prior chest radiograph dated November 17, 2018. FINDINGS: A right-sided portacatheter is seen with the tip in the proximal portion of the superior vena cava. There now is evidence of focal infiltrate and/or atelectasis at the left lung base with a small left pleural effusion. Prior open reduction and internal fixation of the proximal left humerus. Borderline cardiomegaly. Normal mediastinum and reed. Normal visualized pulmonary arteries. There is atherosclerotic calcification of the aortic arch with tortuosity. Air-fluid levels in nondistended small bowel loops. Air is seen in the colon. This may represent an ileus pattern. The soft tissue structures of the abdomen and pelvis are unremarkable. Prior bilateral total hip replacement. RAD/Acute Abdomen Inc Chest IMPRESSION: Findings suggestive of an ileus gas pattern. Left lower lobe atelectasis/infiltrate with a small left pleural effusion. Electronically Signed: Benjamin Mijares, at 14:01 EDT , Service support ,
[2018-12-01 13:40] LABS: Differential Indicated SCAN CRITERIA MET; POSITIVE COUNT YES; POSITIVE DIFFERENTIAL YES; POSITIVE MORPHOLOGY YES
[2018-12-01 13:45] LABS: Hypochromasia 2+; Platelet Estimate ADEQUATE (ADEQ); Red Cell Morphology N CYTIC NORMAL (NORM C&C)
--- NOTE | 2018-12-01 14:20 | CM.ED ---
Social Work Assessment Referral Date: 12/01/18 Date of Assessment: 12/01/18 Informant: SELF REFERRAL- DISCUSSED WITH DR. CARDONA Reason for Consult: DISCHARGE PLANNING/EDUCATION ON PALL MEDICINE Information obtained from: PATIENT, PATIENT'S , KIANA AND DAUGHTER, DOMINGO Living Arrangements: PATIENT LIVES HOME WITH IN A 2 STORY HOME WITH 3 STEPS TO ENTER DME: [employer] Employment/Financial: RETIRED Supports: PATIENT HAS GOOD FAMILY SUPPORT. Social/Family Stressors: DX RELATED Mental Health History: PATIENT DENIES MENTAL HEALTH HX. Substance Abuse History: PATIENT DENIES SUBSTANCE ABUSE HX. Interventions: SOCIAL SERVICE ASSESSMENT FOLLOW UP WITH [facility] REGARDING PATIENT'S STATUS Assessment: PATIENT IS A 73 Y/O FEMALE WHO PRESENTS TO ED WITH NAUSEA/VOMITING, FATIGUE. PATIENT UNDERGOING CHEMO. PATIENT LIVES HOME WITH IN A 2 STORY HOME WITH 3 STEPS TO ENTER. DISCUSSED PALLIATIVE MEDICINE REFERRAL. PATIENT STATES HAS ALREADY BEEN IN CONTACT WITH [facility] DISCUSSING PALL MEDICINE VS HOSPICE. PATIENT REQUESTING THIS WORKER FOLLOW UP WITH [facility] TO DISCUSS REFERRAL. CALL TO [facility], SPOKE WITH ARIELLA. PER ARIELLA, WAREHOUSE WORKER 2ND SHIFT WAS OUT TO SPEAK WITH PATIENT AND FAMILY ABOUT HOSPICE SERVICES. PALL MEDICINE TO FOLLOW UP TOMORROW. INFORMED ARIELLA THIS WORKER WILL UPDATE WITH DISPOSITION FROM ED. DISCUSSED WITH DR. CARDONA. PER DR. CARDONA, ANTICIPATE ADMISSION. PLAN: ADMIT
--- NOTE | 2018-12-01 14:24 | CT_ITS ---
STUDY: CT ABDOMEN AND PELVIS WITHOUT CONTRAST REASON FOR EXAM: Female, 73 years old. Vomiting and abdominal distention. History of colon cancer and prior colectomy. RADIATION DOSAGE (If Supplied By Facility): CTDIvol = ( 12.01 ) mGy, DLP = ( 646.75 ) mGycm TECHNIQUE: Transaxial images were obtained from the dome of the diaphragm to the symphysis pubis without oral contrast, and without intravenous contrast. Sagittal and coronal images were reconstructed. Individualized dose optimization techniques were used for this CT. COMPARISON: Comparison is made with prior study dated October 12, 2018. FINDINGS: There now is evidence of small bilateral pleural effusions slightly more prominent on the left side with infiltration and/or atelectasis in the lingular segment of the left upper lobe as well as in the left lower lobe. Calcified granuloma in the right middle lobe. The visualized portions of the heart are within normal limits. Normal liver. There is a 1.5 cm nodule in the peritoneal fat anterior to the right lobe of the liver. Diffuse ascites. There is a 2.1 cm x 2 cm hypodensity in the right lobe of the liver superiorly. I also suspect 2 smaller hypodensities in the inferior midportion of the right lobe of liver as well as in the left lobe of the liver suggestive of metastasis. These are not as well seen without IV contrast. Normal gallbladder and extrahepatic biliary system. Normal spleen. There is diffuse atrophy of the pancreas. There is symmetric enlargement of the adrenal glands suggesting adrenal hyperplasia. There is a 2.7 cm x 2 cm cyst in the anterior midportion of the right kidney. Normal left kidney. There is a small hiatal hernia. Normal small intestine. There are multiple colonic diverticula consistent with diverticulosis. The patient is status post right hemicolectomy since prior study. Normal abdominal aorta. Normal inferior vena cava. There is borderline retroperitoneal lymphadenopathy with enlarged nodes no greater than 10mm in the short axis diameter. Multiple small lymph nodes are seen in the root of the mesentery as well as in the right lower quadrant with thickening of the right Gerota s fascia. Fluid is seen in the abdomen and pelvis in keeping with ascites. There is also evidence of a metastatic or implants of the omentum. Normal urinary bladder. There is a small umbilical hernia containing fat. Bilateral hip replacements. Minimal anterior listhesis of L4 on L5. CT/Abdomen/Pelvis without Cont IMPRESSION: Small bilateral pleural effusions worse on the left side with infiltration and/or atelectasis in the lingular segment of the left upper lobe as well as the left lower lobe. Diffuse ascites with omental implants. Hepatic metastasis. Multiple lymph nodes are seen within the mesentery therapy and right lower quadrant. The patient is status post right hemicolectomy. Electronically Signed: Benjamin Mijares, at 15:25 EDT , Service support ,
--- NOTE | 2018-12-01 14:50 | CM.ED ---
SOCIAL WORK CALL TO [facility]. LEFT MESSAGE UPDATING ON ANTICIPATED ADMISSION. THIS WORKER'S CALL BACK INFORMATION PROVIDED. ALAINA FLORES, [employer]ER, TAILING HAND.
[2018-12-01 15:09] LABS: Lactic Acid 0.9 mmol/L (0.4-2.0)
--- NOTE | 2018-12-01 15:28 | NURSING ---
DR GONZALES FOR DR CARDONA
--- NOTE | 2018-12-01 15:33 | NURSING ---
PCU LLL PNEUMONIA, NEUTROPENIA, ILEUS ASHELFAH
--- NOTE | 2018-12-01 15:54 | HP.PCM_ITS ---
Problem List (1) Left lower lobe pneumonia Status: Acute (2) Neutropenia associated with infection Status: Acute (3) Ileus Status: Acute (4) Ascites, malignant Status: Acute (5) Lung metastasis Status: Acute (6) Neuroendocrine carcinoma of colon Status: Acute (7) Liver metastases Status: Acute (8) Peritoneal carcinomatosis Status: Acute (9) Omental metastasis Status: Acute (10) Urinary incontinence Status: Chronic History of Present Illness Date of Admission: 12/01/18 Chief Complaint: Nausea, vomiting, weakness. 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 Patient received chemotherapy on November 22, 2018 and since then, she has been having intractable and persistent nausea with vomiting, vomitus as moderate to large amount of dark green fluids, has not been able to eat or drink for many days now, associated with profound weakness and fatigue as well as abdominal pain and distention. She complains of abdominal pain that has been going on for several days, generalized vague pain, 8 out of 10 in severity, nonradiating, associated with poor oral intake, nausea vomiting and without aggravating or relieving factors. She was started on methadone and Percocet yesterday and she took methadone yesterday and today without any help. She complains of mild productive cough with clear sputum for the last several days, associated with mild shortness of breath and without aggravating or relieving factors. She denies fever or chills. She denied constipation or diarrhea. She denied urinary symptoms. In the emergency department, she was tachycardic, afebrile, blood pressure was stable, pulse ox was 98% on 3 L. Routine blood work was remarkable for neutropenia, leukopenia, anemia and thrombocytopenia. BMP was unremarkable. LFT revealed elevated alkaline phosphatase, liver transaminases and bilirubin were normal. CT scan abdomen and pelvis without contrast revealed small bilateral pleural effusion, left upper and lower lobe questionable infiltrate, diffuse ascites with omental implants, hepatic metastasis, multiple enlarged lymph nodes. Chest x-ray was very poor quality x-ray, revealed cardiomegaly, suspected infiltrate on the left lower lobe, small left pleural effusion. X-ray abdomen revealed ileus. She is being admitted for suspected healthcare associated pneumonia, intractable nausea and vomiting/abdominal pain, leukopenia with neutropenia without fever as well as anemia and thrombocytopenia. Past Medical History Past Medical History (Chronic Problems): Chronic Problems (Last Reviewed 11/22/18 @ 08:32 by Jaye Chris) Urinary incontinence (Chronic) Medical History: Medical History (Last Reviewed 11/22/18 @ 08:32 by Jaye Chris) Abdominal mass, right upper quadrant (Acute) R19.01 Irreducible ventral incisional hernia (Acute) K43.0 Urinary incontinence (Chronic) R32 Fracture of left humerus S42.302A 2007 Umbilical hernia K42.9 irregular bowel patterns Allergies No Known Allergies Allergy (Verified 12/01/18 12:48) Home Medications: Ambulatory Orders Medication Instructions Recorded oxybutynin chloride 5 mg tablet 5 mg PO BID tab 10/11/18 Acetaminophen [Tylenol] 500 mg PO Q6H PRN PRN 10/28/18 Lidocaine/Prilocaine 1 applic TP DAILY PRN PRN 30 Days 11/11/18 [Lidocaine-Prilocaine Cream] #1 tube Ondansetron [Ondansetron Odt] 8 mg PO Q8H PRN PRN 10 Days #30 11/11/18 tab.rapdis Prochlorperazine Maleate 10 mg PO Q6H PRN PRN 10 Days #30 11/11/18 tab Oxycodone HCl/Acetaminophen 5 - 325 mg PO Q4H PRN PRN 11/22/18 [Percocet 5/325] Carboplatin 12/01/18 Etoposide 12/01/18 Methadone HCl 10 mg PO BID 12/01/18 Tecentriq 12/01/18 Surgical History: Surgical History (Last Reviewed 11/22/18 @ 08:32 by Jaye Chris) History of colonoscopy Onset Date: ~09/2018 Z98.890 History of total bilateral knee replacement Z96.653 S/P right hemicolectomy Z90.49 10-20-18 Surgical History: colectomy, total hip arthroplasty - right 2016 Psychiatric History: No pertinent psych hx 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 Denies: Chills, Fever Eyes: Denies: Blurred vision, Double vision, Drainage, Redness HEENT: Denies: Difficulty Hearing, Ear Pain, Eye Pain, Nasal Congestion, Sore Throat Cardiovascular: Denies: Chest Pain, Chest Pressure, Heaviness, Light Headedness, Palpitations, Syncope Respiratory: Reports: Cough, Shortness of Breath, Sputum production. Denies: Hemoptysis, Pleuritic Pain, Wheezing Gastrointestinal: Reports: Abdominal Pain, Nausea, Vomiting. Denies: Constipation, Diarrhea, Hematochezia, Melena Genitourinary: Denies: Dysuria, Frequency, Hematuria Musculoskeletal: Denies: Arm Pain, Back Pain, Foot Pain Skin: Denies: Dryness, Rash Neurological: Denies: Balance problems, Double vision, Change in Speech, Slurred speech, Confusion, Focal weakness, Headaches, Incoordination, Numbness Psychiatric: Denies: Anxiety, Depression Endocrine: Denies: Change in Body Habitus, Polydipsia, Polyuria VTE Information - Inpt Only VTE Present on Admission: No VTE Mechan Device Prophylaxis: SCD's VTE Pharm Prophylaxis ordered?: No Patient Problems: Active and Suspected Problems (Last Reviewed 11/22/18 @ 08:32 by Jaye Chris) Left lower lobe pneumonia (Acute) Neutropenia associated with infection (Acute) Ileus (Acute) - Physical Exam General: Alert, Oriented x3, Cooperative, No apparent distress HEENT: Atraumatic, PERRLA, EOMI, Normocephalic Oral: No Gingival or Mucosal Lesions/ Ulcerations, Dry Mucosa Neck: Supple, No JVD, Negative Carotid Bruits, Trachea Midline, Thyroid Normal Size and Texture Lungs: No wheeze, No rales, Diminished, Rhonchi, Short of Breath, - - Decreased breath sounds bilateral, scattered rhonchi. Cardiovascular: Regular rate, Regular Rhythm, Normal S1, Normal S2, PMI Normal, Tachycardic Abdomen: Bowel Sounds Present, Soft, Non Tender, No Hepato-splenomegaly, Distended, - - Ascites. Extremities: No clubbing, No cyanosis, No edema Skin: No rashes, No breakdown Lymphatic: No Cervical, Supraclavicular, or Inguinal Adenopathy Neurological: Cranial nerves II-XII grossly intact, Motor Exam 5/5 strength throughout Psych/Mental Status: Normal Affect, Appropriate, Alert and oriented to time, place, person, mood and affect Vital Signs Temp Pulse Resp BP Pulse Ox 98.1 F 105 H 16 124/62 H 98 12/01/18 14:17 12/01/18 14:17 12/01/18 14:17 12/01/18 14:17 12/01/18 14:17 Oxygen Flow Rate (L/min) 3 Oxygen Delivery Method Nasal Cannula Weight: 166 lb 10.711 oz Body Mass Index (BMI) 28.5 Laboratory Tests Past 24 Hrs 12/01/18 12/01/18 12/01/18 12:36 12:36 12:36 WBC 0.3 L* RBC 3.50 L Hgb 9.2 L Hct 29.8 L MCV 85.1 MCH 26.3 L MCHC 30.9 L RDW 15.6 H RDW Differential 48.9 H Plt Count 81 L MPV 9.8 Immature Gran % (Auto) 0.000 Neut % (Auto) 3.5 L Lymph % (Auto) 78.6 H Stephenson % (Auto) 14.3 H Eos % (Auto) 0.0 Baso % (Auto) 3.6 H Absolute Neuts (auto) 0.0 L Absolute Lymphs (auto) 0.22 L Total Counted Not Reportable Diff Path Review May foll Platelet Estimate ADEQUATE RBC Morphology N CYTIC Hypochromasia 2+ Sodium 138 Potassium 3.6 Chloride 101 Carbon Dioxide 28.0 Anion Gap 9 BUN 16 Creatinine 0.49 L Estim Creat Clear Calc 43.91 Est GFR (MDRD) Af Amer 159 Est GFR (MDRD) Non-Af 132 BUN/Creatinine Ratio 32.7 H Glucose 82 Lactic Acid 0.9 Calcium 8.2 L Total Bilirubin 0.80 AST 19 ALT 16 Alkaline Phosphatase 554 H Total Protein 6.6 Albumin 1.7 L Globulin 4.9 H Albumin/Globulin Ratio 0.3 L Clinical Impression(s) from Imaging Studies Acute Abdomen Series 12/01/18 13:25 IMPRESSION: Findings suggestive of an ileus gas pattern. Left lower lobe atelectasis/infiltrate with a small left pleural effusion. Electronically Signed: Benjamin Mijares, at 14:01 EDT , Service support , Abdomen/Pelvis CT 12/01/18 14:24 IMPRESSION: Small bilateral pleural effusions worse on the left side with infiltration and/or atelectasis in the lingular segment of the left upper lobe as well as the left lower lobe. Diffuse ascites with omental implants. Hepatic metastasis. Multiple lymph nodes are seen within the mesentery therapy and right lower quadrant. The patient is status post right hemicolectomy. Electronically Signed: Benjamin Mijares, at 15:25 EDT , Service support , Assessment/Plan All Active Problems (Last Reviewed 11/22/18 @ 08:32 by Jyae Chris) Left lower lobe pneumonia (Acute) Neutropenia associated with infection (Acute) Ileus (Acute) Ascites, malignant (Acute) Lung metastasis (Acute) Neuroendocrine carcinoma of colon (Acute) Regional lymph node metastasis present (Acute) Metastatic neuroendocrine tumor to abdominal wall (Acute) Liver metastases (Acute) Peritoneal carcinomatosis (Acute) Omental metastasis (Acute) Abdominal mass, right upper quadrant (Acute) Irreducible ventral incisional hernia (Acute) This is a 73 years old female patient presented to the emergency room because of persistent nausea and vomiting, abdominal pain, weakness, cough with shortness of breath and she was found to have suspected infiltrate on the left lung, found to have leukopenia with neutropenia without fever, anemia and thrombocytopenia and she is being admitted for suspected healthcare associated pneumonia, intractable nausea and vomiting/abdominal pain, leukopenia/neutropenia and t hrombocytopenia. #1 suspected left lung healthcare associated pneumonia/severe sepsis: Patient is in severe sepsis based on tachycardia, tachypnea, severe leukopenia and suspected source of infection. Lactic acid is normal. Chest x-ray reviewed as above. Plan: Admit to PCU, cardiac monitoring, blood culture, urinalysis, urine culture, sputum culture, pneumococcal and Legionella antigen, start IV vancomycin and Zosyn, bronchodilators, chest physiotherapy, incentive spirometer, repeat CBC and CMP tomorrow morning, PT OT evaluation and treatment. #2 leukopenia/neutropenia without fever: Secondary to chemotherapy. Patient reports that she received Neulasta injection 1 day after her chemotherapy. Today, she is leukopenic, ANC is 0 but she is afebrile. Plan as above, start IV antibiotics, and cultures, will start Granix subcu injections daily, repeat CBC tomorrow morning. #3 anemia/thrombocytopenia: Again, it is due to chemotherapy. She does have chronic anemia, baseline hemoglobin around 11 g/dL. Admission hemoglobin is 9.2 g with dysuria. No evidence of active bleeding. Platelet count is 81,000 and admission, baseline platelet count is normal. No evidence of active bleeding. Plan as above, start Granix injections, repeat CBC tomorrow morning. #4 intractable nausea vomiting/abdominal pain: This is probably due to metastatic cancer in addition to recent chemotherapy. CT scan abdomen reviewed as above. Plan: IV fluids, IV morphine PRN, IV Zofran, IV Phenergan, IV Pepcid. #5 ascites: Probably malignant ascites. CT scan abdomen revealed metastatic cancer. Patient may need therapeutic paracentesis. #6 recent diagnosis of neuroendocrine carcinoma of the colon: With metastasis to lung and liver as well as peritoneum and omentum. Status post hand-assisted laparoscopic extended right colectomy with omentectomy and this was done on October 20, 2018. Patient received chemotherapy on November 22, 2018 and receiving Neulasta injection day after. Plan: Oncology consult. #7 chronic urinary incontinence: Continue Ditropan. #8 CODE STATUS: DNR CCA. Patient clearly mentioned that she does not want any CPR, intubation or mechanical ventilation. #9 DVT prophylaxis: SCDs, no chemical prophylaxis because of thrombocytopenia. This note was generated with [employer] dictation software. It may contain incorrect words, spelling, and punctuation that were not noted in checking the note before signing. Code Visit Inpatient E&M: 95323 Init Hosp L3
[2018-12-01] MEDS: 0.9% Normal Saline 1,000 ML 75 ML IV (17:22)
--- NOTE | 2018-12-01 18:48 | PCM.RX.CS ---
Consult Pharmacy has been consulted to manage selected antiobiotic: Vancomycin Type of Consult: New start Suspected Infection: Sepsis, Pneumonia Prior Doses of Antibiotics Received/Current Regimen: VANCOMYCIN 2000MG X1 12/01 @1715 Labs: Sodium 138 mmol/L (136-145) 12/01/18 12:36 Potassium 3.6 mmol/L (3.5-5.1) 12/01/18 12:36 Chloride 101 mmol/L (98-107) 12/01/18 12:36 Carbon Dioxide 28.0 mmol/L (21.0-32.0) 12/01/18 12:36 9 (5-15) 12/01/18 12:36 BUN 16 mg/dL (7-18) 12/01/18 12:36 0.49 mg/dL (0.55-1.02) L 12/01/18 12:36 Est GFR (MDRD) Af Amer 159 mL/min (>60) 12/01/18 12:36 Est GFR (MDRD) Non-Af 132 mL/min (>60) 12/01/18 12:36 32.7 RATIO (10-20) H 12/01/18 12:36 Glucose 82 mg/dL (74-106) 12/01/18 12:36 Weight used for dosin.6 kg Estimated Creatinine Clearance: 44 ML/MIN Goal Trough: 15-20 mcg/mL Pharmacy Plan for Drug Dosing: PLAN/RECOMMENDATIONS 1. Vancomycin 500mg IV Q12hr per protocol to start 12hrs from initial dose 12/02 @0500 2. Trough prior to 4th total dose 12/03/18 @0430 3. Pharmacy Service will continue to monitor and adjust dosing as required.
[2018-12-01] MEDS: Ipratropium/Albuterol Sulfate 3 ML AMPUL.NEB INHALATION (19:05)
[2018-12-01] MEDS: Oxybutynin 5 MG Tablet PO (21:52)
[2018-12-02 03:02] VITALS: PULSE 99
[2018-12-02 04:00] VITALS: BP 137/67; PULSE 109; RESP 20; TEMP 37.2; O2SAT 94
[2018-12-02] MEDS: oxyCODONE 5 MG Tablet PO (04:22)
[2018-12-02] MEDS: Vancomycin IV 500 MG/100 ML BAG 100 MG IV (04:22)
[2018-12-02] MEDS: Ondansetron 4 MG/2 ML Vial IV (04:23)
[2018-12-02] MEDS: 0.9% NaCl Peripheral Flush Adult/Peds IV ×2 (04:23→11:54)
[2018-12-02 04:32] VITALS: PULSE 120; RESP 22
[2018-12-02] MEDS: Albuterol 2.5 MG/3 ML VIAL.NEB. INHALATION (04:32)
[2018-12-02 06:50] LABS: Absolute Lymphocyte Count 0.24 X10^3/ul (0.83-4.51); Absolute Neutrophil Count 0.1 X10^3/uL (2.0-7.7); Eosinophil# 0.02 X10^3/uL; Eosinophils% 4.5 % (0-5); Hematocrit 29.8 % (37-47); Hemoglobin 9.1 g/dl (12.0-15.0); Lymphocyte # 0.24 X10^3/ul (4.0); Lymphocyte % 54.5 % (19-41); Mean Corp Hgb Conc 30.5 g/gl (32-36); Mean Corpuscular Hgb 26.3 pg (27.0-32.0); Mean Corpuscular Volume 86.1 fL (81-99); Mean Platelet Vol. 10.1 fl (6.2-12.0); Monocyte# 0.08 X10^3/uL; Monocyte% 18.2 % (0-10); Neutrophil # 0.09 X10^3/uL (2.7-7.7); Neutrophil % 20.5 % (47-70); RBC Distribution Width CV 15.7 % (11.6-14.6); RBC Distribution Width SD 47.9 fl (35.1-43.9); Red Blood Count 3.46 M/mm3 (4.2-5.4)
[2018-12-02 06:51] LABS: Differential Indicated SCAN CRITERIA MET; POSITIVE COUNT YES; POSITIVE DIFFERENTIAL YES; POSITIVE MORPHOLOGY YES
[2018-12-02 06:53] LABS: Platelet Count 43 K/mm3 (150-450); White Blood Count 0.4 K/mm3 (4.4-11.0)
[2018-12-02 06:59] LABS: ALB/GLOB Ratio 0.3 RATIO (0.9-2.4); AST(SGOT) 17 U/L (15-37); Alanine Aminotransfer ALT/SGPT 15 U/L (13-56); Albumin, Serum 1.5 g/dL (3.2-5.0); Alkaline Phosphatase 488 U/L (45-117); Anion Gap 8 (5-15); BUN 16 mg/dL (7-18); Calcium,Total 8.1 mg/dL (8.5-10.1); Chloride 106 mmol/L (98-107); Creatinine, Serum 0.59 mg/dL (0.55-1.02); EST Glomerular Filtration Rate 106 mL/min (>60); Est Glom Filt Rate - Afr Amer 128 mL/min (>60); Estimated Creatinine Clearance 43.91 ml/min; Globulin 4.5 g/dL (2.2-4.2); Glucose 98 mg/dL (74-106); Potassium 3.3 mmol/L (3.5-5.1); Sodium Level 141 mmol/L (136-145)
[2018-12-02 07:05] LABS: Differential Comment SCANNED; Platelet Estimate MOD DEC (ADEQ)
[2018-12-02] MEDS: 0.9% Normal Saline 1,000 ML 75 ML IV (07:28)
[2018-12-02 07:30] VITALS: PULSE 108
--- NOTE | 2018-12-02 08:41 | CON.PCM_ITS ---
- Problem List (1) Ascites, malignant Status: Acute (2) Lung metastasis Status: Acute (3) Neuroendocrine carcinoma of colon Status: Acute (4) Regional lymph node metastasis present Status: Acute (5) Metastatic neuroendocrine tumor to abdominal wall Status: Acute (6) Liver metastases Status: Acute (7) Peritoneal carcinomatosis Status: Acute (8) Omental metastasis Status: Acute (9) Pancytopenia Status: Acute Consult Referring Physician: Hospitalist Consult Results: Widely metastatic high-grade neuroendocrine carcinoma Subjective Date of Service:: 12/02/18 Chief Complaint: N/V fatique. Emesis x 2 today with black contents History of Present Illness: Patient is a 73-year-old female, never smoker with a past medical history notable for chronic degenerative back pain for which she had been under the care of Dr. Aviles for several years and had a colonoscopy in 2016 when a hyperplastic polyp was removed and continued surveillance was advised. Starting in the fall 2017 she experienced a change in her health notable for increasing back pain, anorexia with an over 20 pound weight loss, change in bowel habit notable for urgency and if not quick enough to get to the bathroom she would have incontinence, and enlarging chronic umbilical hernia. She was seen by Dr. Denny on September 2018 and abdominal mass was felt then. October 12, 2018 CT scan of the abdomen and pelvis : IMPRESSION: 1. Cecal mass measuring approximately 6.4 x 6.8 x 6.8 cm. Findings are highly suspicious for malignancy. There are multiple adjacent enlarged mesenteric nodes. 2. There is a dumbbell shaped 3. mass of the anterior pelvis extending into the left periumbilical subcutaneous soft tissues. This mass contains fat and measures approximately 8.7 x 5.4 x 7.9 cm. This may represent indurated omental fat. 4. There are multiple scattered hepatic hypodensities measuring up to 1.1 cm, raising the suspicion of metastatic disease. 5. There are scattered shotty retroperitoneal nodes. 6. There is a tiny amount of free fluid in the deep right pelvis. 7. Bilateral hip implants. Minimal grade 1 anterolisthesis of L4 relative to L5. 8. Large bilateral fat-containing inguinal hernias. October 15, 2018 colonoscopy: Impressions : - Non-thrombosed external hemorrhoids, non-thrombosed internal hemorrhoids and internal hemorrhoids that prolapse with straining, but require manual replacement into the anal canal (Grade III) found on digital rectal exam. - Malignant tumor in the ascending colon, in the proximal ascending colon and in the cecum. Biopsied. - One 9 mm polyp at the hepatic flexure, removed with a hot snare. Resected and retrieved. - Diverticulosis in the sigmoid colon. October 15, 2018 pathology: MICROSCOPIC DIAGNOSIS A. Cecal mass, biopsy: Neuroendocrine carcinoma. See comment. B. Colonic polyp at hepatic flexure, biopsy: Fragments of tubular adenoma. October 20, 2018 Surgery/Procedure Performed:: Hand assisted laparoscopic extended right colectomy with omentectomy. Ventral incisional herniorrhaphy. Bilateral MADONNA block Description of Surgical Findings:: Timeout and informed consent was obtained. 73-year-old female taken the operative placement table underwent general endotracheal intubation anesthesia. Cefotetan 2 g given intravenous preoperatively. The arm was sterilely prepped draped with chlorhexidine. Ioban draping was used. A vertical incision was made care home through the incarcerated area at the umbilicus and superiorly. Sharp dissection carried down through the substance tissue. The linea alba was incised and immediately upon entering the abdomen it became apparent that there was a large mass of omentum incarcerated with the ventral hernia located at the umbilicus with tumor involvement. There was extensive peritoneal seeding. There was a small amount of ascitic fluid. There was a large mass involving the ascending colon with dense attachment to the retroperitoneum. With sharp and blunt dissection I release the incarcerated omentum and tumor at the ventral umbilical site. I placed the hand assist port. I placed two 5- minute ports one in the left upper quadrant one in the right upper quadrant and using those I utilized that these harmonic scalpel to release the ascending colon and proximal transverse colon. It is of note that there was extensive red retroperitoneal involvement to where tumor fracture technique had to be utilized to free the ascending colon particular close to the hepatic flexure. There was some bleeding at that site which was treated with electrocautery and pressure and a laparotomy pack. Argon beam was not available to us today. I was able to evacuate the right colon then through the hand assist port site was able to visualize that the greater omentum coming off the transverse colon had a big bulk of the disease and so I transected the transverse colon distal to the midpoint transected the mesentery using the harmonic scalpel and were needed hemostasis was additionally obtained with hemoclips or 0 chromic ligatures. Having completely mobilized now the terminal ileum and the proximal half of the colon I used a COREY-75 stapler to transect the transverse colon and the terminal ileum. There were placed side to side and held there with 4-0 silk. Enterotomies were created. A functional end-to-end anastomosis was created by placing the bowel side by side and using the 75 mm stapler. I then closed the enterotomy site with a TA 60 stapler. I closed the trap with a running 4-0 silk. Bowel appeared to be viable appeared to have adequate blood flow I tried to make the anastomosis free of gross peritoneal disease though there was seeding involving the mesentery and peritoneum and omentum throughout. Bulky disease of the omentum was resected with the specimen. October 20, 2018 pathology: MICROSCOPIC DIAGNOSIS Right colon, hemicolectomy: Invasive high-grade neuroendocrine carcinoma. See comment. COMMENT COLON CANCER SUMMARY: Specimen right colon Procedure right hemicolectomy Tumor site - cecum Tumor size 7.8 x 5.5 x 1.6 cm Macroscopic tumor perforation not identified Histologic type high grade neuroendocrine carcinoma with extensive tumor necrosis. Histologic grade high grade Microscopic tumor extension tumor penetrates through surface of visceral peritoneum (serosa). Margins: Proximal mucosal margin uninvolved by invasive carcinoma Distal mucosal margin - uninvolved by invasive carcinoma Circumferential (radial) margin - involved by invasive carcinoma, focal Treatment effect - unknown Lymph-Vascular invasion present, focal Perineural invasion present, focal Tumor deposits present, numerous (largest deposit measures 6 cm in greatest dimension) Polyp associated with invasive carcinoma tubular adenoma Lymph nodes: Number of lymph nodes examined - 8 Number of lymph nodes involved - 2 Additional pathologic findings - one serrated adenoma Ancillary studies: See microsatellite instability study by IHC ([id number]) for complete details. Result of microsatellite instability study: Negative (no loss of mismatch protein; no microsatellite instability detected). KI67 index 80% (high) PATHOLOGIC STAGE: pT4a N1b Mx November 02, 2018 bone scan: IMPRESSION: 1. The increase in radiopharmaceutical concentration identified in the right scapula and proximal sternum may be further investigated with plain film radiography in the setting of known colorectal carcinoma. 2. Degenerative arthritis appears expressed in the bilateral shoulder elbow and wrist articulations, right-left knees, the left ankle, right midfoot, forefoot bilaterally, the thoracic and lumbar spine, posterior midline sacrum. Plain film x-ray may also be of benefit in the region of the lower thoracic spine. November 08, 2018 CT chest: IMPRESSION: No pulmonary embolism, aortic aneurysm, or aortic dissection. Pericardiophrenic lymphadenopathy suggestive of supradiaphragmatic metastasis. The largest of these lymph nodes, above the diaphragm, measures 26 x 15 mm Multiple pulmonary nodules. Mostly these are in the right upper lobe. The majority of these nodules, the largest of these nodules are calcified. There is some right hilar benign calcified lymphadenopathy. The other pulmonary nodules within the right upper lobe are likely benign Granulomas, even without calcification, rather than pulmonary metastasis. There are small pleural effusions, but there are no other pulmonary nodules. Hepatic metastasis with ascites. Treatment: Right hemicolectomy October 20, 2018 Carboplatin etoposide atezolizumab (Tecentriq) received cycle 1 November 22, 2018 followed by Neulasta November 25, 2018 (on body self injector) Patient was acutely hospitalized December 01 with progressively worsening nausea vomiting abdominal pain and diarrhea. Past Medical History: Chronic Problems (Last Reviewed 11/22/18 @ 08:32 by Jaye Chris) Urinary incontinence (Chronic) Past Medical/Surgical History: Past Medical History - Most Recent Inpatient Visit Past Medical History Start: 12/01/18 16:37 Text: Status: Complete Freq: ONCE Protocol: Document 12/01/18 16:37 JESSY (Rec: 12/01/18 17:05 [id number]) BMI Required to complete PMH What is Patient's BMI 27.4 Past Medical History Unable History Recalled Yes Query Text:Pt Unable/Family Not Present Neurologic Medical History Hx Stroke/TIA No Hx Dementia/Alzheimer's No Hx Parkinson's Disease No Hx Seizures No Hx Multiple Sclerosis No Hx Migraines Yes: long time ago per pt Cardiac Medical History VTE Present on Admission No Hx of Deep Vein Thrombosis/VTE/PE No Hx Hypertension No Hx Chest Pain/Angina No Hx Heart Attack No Hx Cardiac Surgery/Stents/Etc. No Hx Heart Failure No Hx Pacemaker/AICD No Hx Irregular Heartbeat and/or Afib No Hx Anticoagulant Therapy No Query Text:(Coumadin, Aspirin, Plavix, Xarelto, etc.) Hx Pain in Legs when Walking/Leg Cramps Yes: left hip Respiratory Medical History Hx COPD No Hx Emphysema No Hx Smoking No Smoking Status Never smoker Hx Tobacco Use in last 12 months No Hx Sleep Apnea No CPAP No BIPAP No Do you snore loudly (louder than talking No or can be heard through closed doors)? Do you often feel tired/ fatigued/ Yes sleepy during daytime? Has anyone observed you stop breathing No during sleep? STOP Results Negative GI Medical History Hx Ulcer No Hx Hepatitis No Hx Cirrhosis No Hx GI Bleed No Hx Unplanned Weight Loss No Genitourinary Medical History Indwelling Catheter in Place on Arrival/ No Admission Hx Renal Disease No: incontinence Hx Dialysis No Musculoskeletal History Hx Arthritis Yes: KNEE, HIP Hx Rheumatoid Arthritis No Endocrine Medical History Hx Diabetes No Hx Thyroid Disease No Hematologic Medical History Hx of Blood Transfusion No Hx of Transfusion in last 3 Months No Ever experience any problems with No transfusion(s)? Hx of Preganancy in last 3 Months N/A Nurse Filling Out Transfusion & DWISE2 Questions: Date: 12/01/18 Time: 17:05 Psycho/Social Medical History Hx Depression No Hx Anxiety No Hx Behavior Disorder No Hx Alcohol Use No Hx Substance Use No Other Medical History Hx Blood Disorders No Hx Anemia No Hx Cancer No Hx Drug Resistant Organism No Wound/Pressure Injury Present on Arrival No /Admission Query Text:If yes, chart assessment in Shift/Clinical Findings Central Line/PICC/VAD Present on Arrival No /Admission Antibiotics within last 7 days? Yes Name of Antibiotic (Include dose/# days Amoxicillan (took prior to taken if known) dental cleaning) Methicillin Resistant Staphylococcus aureus Screening Active MRSA No Risk for Readmission Number of Risk Factors 2 At Risk for Readmission Patient is At Risk For Readmission Patient is eligible for Call Back Y Past Medical History (Last Reviewed 11/22/18 @ 08:32 by Jaye Chris) Abdominal mass, right upper quadrant (Acute) Irreducible ventral incisional hernia (Acute) Urinary incontinence (Chronic) Fracture of left humerus (Acute) Umbilical hernia (Acute) irregular bowel patterns (Acute) Past Surgical History (Last Reviewed 11/22/18 @ 08:32 by Jaye Chris) History of colonoscopy (Acute ~09/2018) History of total bilateral knee replacement (Acute) S/P right hemicolectomy (Acute) Maternal Family History: Family History (Last Reviewed 11/22/18 @ 08:32 by Jaye Chris) Mother Ovarian cancer Breast cancer Leukemia Unknown Neurofibromatosis - Social History Lives: Spouse/ Significant Other Smoking Status: Never smoker Alcohol: None Drugs: None Allergies/Adverse Reactions: Allergy/AdvReac Type Severity Reaction Status Date / Time No Known Allergies Allergy Verified 12/01/18 12:48 Review of Systems Constitutional:: Reports: Weakness, Fatigue, Weight loss, Appetite change. Denies: Fever, Sweats, Chills Cardiovascular:: Reports: Dyspnea on exertion. Denies: Chest pain, Palpitations, Orthopnea, PND, Shortness of breath Respiratory: Reports: Shortness of breath upon exertion. Denies: Cough, Hemoptysis, Shortness of Breath, Wheezing Gastrointestinal:: Reports: Abdominal pain, Nausea, Vomiting, Diarrhea. Denies: Constipation, Hematochezia Genitourinary: Denies: Dysuria, Hematuria, 15, Flank pain Musculoskeletal:: Reports: Back pain - Fairly well controlled. Denies: Myalgia, Arthralgia Skin: Denies: Rash, Skin Changes, Wounds Neurological:: Denies: Headache, Dizziness, Visual changes, Tinnitus, Hearing loss Psychiatric: Denies: Anxiety, Depression, Homicidal Ideations, Suicidal Ideations Vital Signs Height 5 ft 4 in Weight: 72.4 kg Weight in Pounds 159.6 lbs Pulse Ox 94 Temperature 99.0 F Pulse Rate 108 Respiratory Rate 22 Blood Pressure 137/67 Blood Pressure Position Semi-Fowlers - Physical Exam General: Alert, Oriented x3, No apparent distress, - - Chronically ill looking but in no acute distress Laboratory Data: Microbiology 12/01/18 14:35 Blood Culture - Preliminary Blood Culture (Wb) - Anticubital Left Laboratory Tests 12/02/18 12/02/18 12/01/18 Range/Units 06:15 06:15 12:36 WBC 0.4 L* (4.4-11.0) K/mm3 RBC 3.46 L (4.2-5.4) M/mm3 Hgb 9.1 L (12.0-15.0) g/dl Hct 29.8 L (37-47) % MCV 86.1 (81-99) fL MCH 26.3 L (27.0-32.0) pg MCHC 30.5 L (32-36) g/gl RDW 15.7 H (11.6-14.6) % RDW Differential 47.9 H (35.1-43.9) fl Plt Count 43 L* (150-450) K/mm3 MPV 10.1 (6.2-12.0) fl Immature Gran % (Auto) 2.300 H (0.0-0.9) % Neut % (Auto) 20.5 L (47-70) % Lymph % (Auto) 54.5 H (19-41) % Assumption % (Auto) 18.2 H (0-10) % Eos % (Auto) 4.5 (0-5) % Baso % (Auto) 0.0 (0-1) % Absolute Neuts (auto) 0.1 L (2.0-7.7) X10^3/uL Absolute Lymphs (auto) 0.24 L (0.83-4.51) X10^3/ul Total Counted Not Reportable Differential Comment SCANNED Diff Path Review May foll Platelet Estimate MOD DEC (ADEQ) RBC Morphology (NORM C&C) NORMAL Hypochromasia Sodium 141 (136-145) mmol/L Potassium 3.3 L (3.5-5.1) mmol/L Chloride 106 (98-107) mmol/L Carbon Dioxide 27.0 (21.0-32.0) mmol/L Anion Gap 8 (5-15) BUN 16 (7-18) mg/dL Creatinine 0.59 (0.55-1.02) mg/dL Estim Creat Clear Calc 43.91 ml/min Est GFR (MDRD) Af Amer 128 (>60) mL/min Est GFR (MDRD) Non-Af 106 (>60) mL/min BUN/Creatinine Ratio 27.0 H (10-20) RATIO Glucose 98 (74-106) mg/dL Lactic Acid 0.9 (0.4-2.0) mmol/L Calcium 8.1 L (8.5-10.1) mg/dL Total Bilirubin 0.90 (0.20-1.00) mg/dL AST 17 (15-37) U/L ALT 15 (13-56) U/L Alkaline Phosphatase 488 H (45-117) U/L Total Protein 6.0 L (6.4-8.2) g/dL Albumin 1.5 L (3.2-5.0) g/dL Globulin 4.5 H (2.2-4.2) g/dL Albumin/Globulin Ratio 0.3 L (0.9-2.4) RATIO 12/01/18 12/01/18 Range/Units 12:36 12:36 WBC 0.3 L* (4.4-11.0) K/mm3 RBC 3.50 L (4.2-5.4) M/mm3 Hgb 9.2 L (12.0-15.0) g/dl Hct 29.8 L (37-47) % MCV 85.1 (81-99) fL MCH 26.3 L (27.0-32.0) pg MCHC 30.9 L (32-36) g/gl RDW 15.6 H (11.6-14.6) % RDW Differential 48.9 H (35.1-43.9) fl Plt Count 81 L (150-450) K/mm3 MPV 9.8 (6.2-12.0) fl Immature Gran % (Auto) 0.000 (0.0-0.9) % Neut % (Auto) 3.5 L (47-70) % Lymph % (Auto) 78.6 H (19-41) % Assumption % (Auto) 14.3 H (0-10) % Eos % (Auto) 0.0 (0-5) % Baso % (Auto) 3.6 H (0-1) % Absolute Neuts (auto) 0.0 L (2.0-7.7) X10^3/uL Absolute Lymphs (auto) 0.22 L (0.83-4.51) X10^3/ul Total Counted Not Reportable Differential Comment Diff Path Review May foll Platelet Estimate ADEQUATE (ADEQ) RBC Morphology N CYTIC (NORM C&C) NORMAL Hypochromasia 2+ Sodium 138 (136-145) mmol/L Potassium 3.6 (3.5-5.1) mmol/L Chloride 101 (98-107) mmol/L Carbon Dioxide 28.0 (21.0-32.0) mmol/L Anion Gap 9 (5-15) BUN 16 (7-18) mg/dL Creatinine 0.49 L (0.55-1.02) mg/dL Estim Creat Clear Calc 43.91 ml/min Est GFR (MDRD) Af Amer 159 (>60) mL/min Est GFR (MDRD) Non-Af 132 (>60) mL/min BUN/Creatinine Ratio 32.7 H (10-20) RATIO Glucose 82 (74-106) mg/dL Lactic Acid (0.4-2.0) mmol/L Calcium 8.2 L (8.5-10.1) mg/dL Total Bilirubin 0.80 (0.20-1.00) mg/dL AST 19 (15-37) U/L ALT 16 (13-56) U/L Alkaline Phosphatase 554 H (45-117) U/L Total Protein 6.6 (6.4-8.2) g/dL Albumin 1.7 L (3.2-5.0) g/dL Globulin 4.9 H (2.2-4.2) g/dL Albumin/Globulin Ratio 0.3 L (0.9-2.4) RATIO Diagnostic Data: Diagnostic Data Acute Abdomen Series 12/01/18 13:25 IMPRESSION: Findings suggestive of an ileus gas pattern. Left lower lobe atelectasis/infiltrate with a small left pleural effusion. Electronically Signed: Benjamin Mijares, at 14:01 EDT , Service support , Abdomen/Pelvis CT 12/01/18 14:24 IMPRESSION: Small bilateral pleural effusions worse on the left side with infiltration and/or atelectasis in the lingular segment of the left upper lobe as well as the left lower lobe. Diffuse ascites with omental implants. Hepatic metastasis. Multiple lymph nodes are seen within the mesentery therapy and right lower quadrant. The patient is status post right hemicolectomy. 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 Patient is status post laparoscopic extended right colectomy with omentectomy, and 1 cycle of combined chemo immune therapy Carboplatin etoposide atezolizumab (Tecentriq) on November 22, 2018 which was followed by long-acting granulocyte stimulating agent (Neulasta on body self injector) on November 25, 2018. Patient hospitalized with progressively worsening nausea vomiting diarrhea anorexia weight loss and feeling overall health and performance status. She is echeverria cytopenic post systemic chemotherapy. As I walked into the patient's room, she appeared comfortable and after review of systems and before proceeding any further with physical examination patient informed me that she has made a decision of requesting comfort measures only on the home hospice program which I quite agree with. Her pancytopenia will gradually recover without any further growth factor support over the upcoming few days. Annemarie Pillai MD Spanish Teacher, [facility] Divisions of Medical Oncology & Hematology Department of Internal Medicine [place] [phone] This note was generated using a voice recognition system software. Although it was reviewed by the author prior to finalization, it may still contain incorrect words, spelling, and punctuation that were not noted when reviewing prior to saving. If a clinically significant typo or inaccurately typed phrase is noted, please notify the author. Medications: Prescriptions This Visit Medication Instructions Recorded Carboplatin 490 mg IV .COMPLEX 12/01/18 Etoposide 180 mg IV .COMPLEX 12/01/18 Methadone HCl 10 mg PO BID 12/01/18 Tecentriq 1,200 mg IV .COMPLEX 12/01/18 Medications Added to Medication List This Visit Category Date Time Status Polyethylene Glycol 3350 [Miralax] Med 12/02/18 10:00 Active 17 gm PO DAILY Potassium Chloride 10mEq/100mL Med 12/02/18 08:00 Active 10 meq in 100 ml IV BOLUS Q1H Vancomycin IV Med 12/02/18 05:00 Active 500 mg in 100 ml IV Q12H Primary Care Provider: Liys Rangel MD Referring Provider:
--- NOTE | 2018-12-02 10:45 | CASEMGMT ---
SW spoke with family as physician said patient is interested in Hospice. SW spoke with patient and her family and they would like patient to be evaluated for the Inpatient Hospice Unit. SW let them know SW will call Hospice. Patient's daughter, Guera asked that they call her when someone will be here so they can get patient's son on the phone. NANCY called Hospice and spoke with Gwendolyn. SW let her know that family would like the Inpatient Hospice Unit and they should call Guera when this has been decided. Madeleine STALLINGS MSW
[2018-12-02 11:44] VITALS: BP 107/50; PULSE 106; RESP 18; TEMP 36.9; O2SAT 97
[2018-12-02 11:51] LABS: Pathologist Review Reviewed
[2018-12-02] MEDS: Morphine 2 MG/ML Syringe IV ×2 (11:54→14:04)
[2018-12-02 12:00] VITALS: PULSE 103
--- NOTE | 2018-12-02 12:09 | CASEMGMT ---
Per Hospice, pt would like to go to the [facility] and they are setting up transport for today at this time. Dr. Cheatham aware at this time, voices understanding. Eva DAVENPORT CM
--- NOTE | 2018-12-02 12:25 | DS.PCM_ITS ---
Discharge Date and Diagnosis - Problem List Patient Problems: Active and Suspected Problems (Last Reviewed 11/22/18 @ 08:32 by Jaye Chris) Left lower lobe pneumonia (Acute) Neutropenia associated with infection (Acute) Ileus (Acute) Pancytopenia (Acute) Date of Admission: 12/01/18 Date of Discharge: 12/02/18 - Primary Discharge Diagnosis Active and Suspected Problems (Last Reviewed 11/22/18 @ 08:32 by Jaye Chris) Left lower lobe pneumonia (Acute) Neutropenia associated with infection (Acute) Ileus (Acute) Pancytopenia (Acute) - Secondary Discharge Diagnosis Chronic Problems (Last Reviewed 11/22/18 @ 08:32 by Jaye Chris) Urinary incontinence (Chronic) Hospital Course and Treatment Imaging Results: Diagnostic Data Acute Abdomen Series 12/01/18 13:25 IMPRESSION: Findings suggestive of an ileus gas pattern. Left lower lobe atelectasis/infiltrate with a small left pleural effusion. Electronically Signed: Benjamin Mijares, at 14:01 EDT , Service support , Abdomen/Pelvis CT 12/01/18 14:24 IMPRESSION: Small bilateral pleural effusions worse on the left side with infiltration and/or atelectasis in the lingular segment of the left upper lobe as well as the left lower lobe. Diffuse ascites with omental implants. Hepatic metastasis. Multiple lymph nodes are seen within the mesentery therapy and right lower quadrant. The patient is status post right hemicolectomy. Electronically Signed: Benjamin Mijares, at 15:25 EDT , Service support , oncology- Dr Hallman hospice and palliative care- Dr France Operations: None Procedures: None Summary of Care Provided: The patient is a 73 year old F recently diagnosed with metastatic neuroendocrine adenocarcinoma of the colon and on chemotherapy was admitted through the ED on 12/01/2018 with a complaint of nausea, vomiting and weakness as well as poor oral intake. Patient had received chemotherapy on 11/22/2018 and since then, she had been having the symptoms which had not improved. She also complained of abdominal pain for several days which was generally vague and rated 8 out of 10 in severity. She had been started on methadone and Percocet but it did not help with her symptoms. On admission in the ED, she was tachycardic and afebrile and was saturating at 98% on 3 L of oxygen. Blood work was significant for neutropenia, leukopenia, anemia and thrombocytopenia. BNP was unremarkable and LFT revealed elevated ALP. Liver transaminases and bilirubin were normal. CT abdomen and pelvis without contrast revealed small bilateral pleural effusion, left upper and lower lobe questionable infiltrate, diffuse ascites with omental implants, hepatic metastasis and multiple enlarged lymph nodes. Chest x-ray was of poor quality but revealed cardiomegaly and suspected infiltrate on the left lower lobe as well as small left pleural effusion and x-ray of the abdomen revealed ileus. She was admitted and managed for sepsis due to health associated pneumonia, intractable nausea and vomiting due to chemotherapy as well as leukopenia and neutropenia as well as anemia and thrombus cytopenia w hich would likely due to the chemotherapy and cancer. SIRS criteria was 3/4. She was started on IV vancomycin and Zosyn. Blood cultures and urine cultures as well as sputum culture was ordered. Oncology was consulted. On 12/02/2018, after review by oncology, patient decided that she did not want any further treatment and wanted to go to hospice. Patient preferred inpatient hospice. Hospice and palliative care was consulted and evaluated patient on 12/02/2018. Decision was made to discharge patient to inpatient hospice on 12/02/2018. Patient was seen and examined prior to discharge. Patient was initially seen with HER-2 daughters and then subsequently evaluated again by hospitalist with her as well as 2 daughters today. Patient stated emphatically that she did not want any further treatment as she now understood that the cancer was terminal and nothing else could be done. She also did not want to go home with home hospice as she did not want her family to deal with the burden of taking care of her. She does complain of abdominal pain but review of systems otherwise negative. Labs and vitals reviewed. o/e: Vital Signs Height 5 ft 4 in Weight: 159 lb 9.835 oz Weight in Pounds 159.6 lbs Pulse Ox 97 Temperature 98.4 F Pulse Rate 106 Respiratory Rate 18 Blood Pressure 107/50 Blood Pressure Position Right Lateral General: Alert, Oriented x3, Cooperative, No apparent distress HEENT: Atraumatic, PERRLA, EOMI, Normocephalic Oral: No Gingival or Mucosal Lesions/ Ulcerations, Dry Mucosa Neck: Supple, No JVD, Negative Carotid Bruits, Trachea Midline Lungs: Diminished, Rhonchi, Short of Breath, - - Decreased breath sounds bilateral, scattered rhonchi. Cardiovascular: Regular rate, Regular Rhythm, Normal S1, Normal S2, PMI Normal, Tachycardic Abdomen: Bowel Sounds Present, Soft, Non Tender, No Hepato-splenomegaly, Distended, positive fluid thrill Extremities: No clubbing, No cyanosis, No edema Skin: No rashes, No breakdown Lymphatic: No Cervical, Supraclavicular, or Inguinal Adenopathy Neurological: Cranial nerves II-XII grossly intact, Motor Exam 5/5 strength throughout Psych/Mental Status: Normal Affect, Appropriate, Alert and oriented to time, place, person, mood and affect Plan is for discharge to hospice. Patient Problems: Active and Suspected Problems (Last Reviewed 11/22/18 @ 08:32 by Jaye Chris) Left lower lobe pneumonia (Acute) Neutropenia associated with infection (Acute) Ileus (Acute) Pancytopenia (Acute) - Physical Exam Vital Signs Temp Pulse Resp BP Pulse Ox 98.4 F 106 H 18 107/50 L 97 12/02/18 11:44 12/02/18 11:44 12/02/18 11:44 12/02/18 11:44 12/02/18 11:44 Oxygen Flow Rate (L/min) 3 Oxygen Delivery Method Nasal Cannula Weight: 159 lb 9.835 oz Body Mass Index (BMI) 27.3 Intake and Output for Last 24 Hours 11/30/18 12/01/18 12/02/18 23:59 23:59 23:59 Intake Total 120 / 120 2316 / 2316 Output Total 150 / 150 Balance 120 / 120 2166 / 2166 Microbiology Past 72 Hours 12/01/18 14:35 Bacteria Detection (PCR) - Final Blood Culture (Wb) - Anticubital Left Strep not Strep pneumo Blood Culture - Preliminary Laboratory Tests Past 24 Hrs 12/01/18 12/01/18 12/01/18 12:36 12:36 12:36 WBC 0.3 L* RBC 3.50 L Hgb 9.2 L Hct 29.8 L MCV 85.1 MCH 26.3 L MCHC 30.9 L RDW 15.6 H RDW Differential 48.9 H Plt Count 81 L MPV 9.8 Immature Gran % (Auto) 0.000 Neut % (Auto) 3.5 L Lymph % (Auto) 78.6 H [place] % (Auto) 14.3 H Eos % (Auto) 0.0 Baso % (Auto) 3.6 H Absolute Neuts (auto) 0.0 L Absolute Lymphs (auto) 0.22 L Total Counted Not Reportable Differential Comment Diff Path Review Reviewed Platelet Estimate ADEQUATE RBC Morphology N CYTIC Hypochromasia 2+ Sodium 138 Potassium 3.6 Chloride 101 Carbon Dioxide 28.0 Anion Gap 9 BUN 16 Creatinine 0.49 L Estim Creat Clear Calc 43.91 Est GFR (MDRD) Af Amer 159 Est GFR (MDRD) Non-Af 132 BUN/Creatinine Ratio 32.7 H Glucose 82 Lactic Acid 0.9 Calcium 8.2 L Total Bilirubin 0.80 AST 19 ALT 16 Alkaline Phosphatase 554 H Total Protein 6.6 Albumin 1.7 L Globulin 4.9 H Albumin/Globulin Ratio 0.3 L 12/02/18 12/02/18 06:15 06:15 WBC 0.4 L* RBC 3.46 L Hgb 9.1 L Hct 29.8 L MCV 86.1 MCH 26.3 L MCHC 30.5 L RDW 15.7 H RDW Differential 47.9 H Plt Count 43 L* MPV 10.1 Immature Gran % (Auto) 2.300 H Neut % (Auto) 20.5 L Lymph % (Auto) 54.5 H [place] % (Auto) 18.2 H Eos % (Auto) 4.5 Baso % (Auto) 0.0 Absolute Neuts (auto) 0.1 L Absolute Lymphs (auto) 0.24 L Total Counted Not Reportable Differential Comment SCANNED Diff Path Review May foll Platelet Estimate MOD DEC RBC Morphology Hypochromasia Sodium 141 Potassium 3.3 L Chloride 106 Carbon Dioxide 27.0 Anion Gap 8 BUN 16 Creatinine 0.59 Estim Creat Clear Calc 43.91 Est GFR (MDRD) Af Amer 128 Est GFR (MDRD) Non-Af 106 BUN/Creatinine Ratio 27.0 H Glucose 98 Lactic Acid Calcium 8.1 L Total Bilirubin 0.90 AST 17 ALT 15 Alkaline Phosphatase 488 H Total Protein 6.0 L Albumin 1.5 L Globulin 4.5 H Albumin/Globulin Ratio 0.3 L Home Medications: Medications to take at Discharge oxybutynin chloride 5 mg tablet 5 mg PO BID tab 10/11/18 Acetaminophen [Tylenol] 500 mg PO Q6H PRN PRN 10/28/18 Lidocaine/Prilocaine [Lidocaine-Prilocaine Cream] 1 applic TP DAILY PRN PRN 30 Days #1 tube 11/11/18 Ondansetron [Ondansetron Odt] 8 mg PO Q8H PRN PRN 10 Days #30 tab.rapdis 11/11/18 Prochlorperazine Maleate 10 mg PO Q6H PRN PRN 10 Days #30 tab 11/11/18 Oxycodone HCl/Acetaminophen [Percocet 5/325] 5 - 325 mg PO Q4H PRN PRN 11/22/18 Carboplatin 490 mg IV .COMPLEX 12/01/18 Etoposide 180 mg IV .COMPLEX 12/01/18 Methadone HCl 10 mg PO BID 12/01/18 Tecentriq 1,200 mg IV .COMPLEX 12/01/18 Primary Care Physician: Lisy Rangel MD [Primary Care Provider] - Disposition: Hospice Medical Facility Minutes spent on discharge:: 45 Patient Condition:: Poor Medical Necessity - Tobacco Use Smoking Status: Never smoker Meaningful Use Info Meaningful Use Diagnoses (Choose all that apply): None applicable Code Visit Inpatient E&M: 38371 Disch Hosp
--- NOTE | 2018-12-02 12:49 | CASEMGMT ---
Patient will be leaving at 2p for the Inpatient Hospice Unit. Plan: d/c to [facility] Hospice Inpatient Unit. Madeleine COOPER
--- NOTE | 2018-12-02 13:04 | NURSING ---
Report called to Hospice Inpt Unit.
[2018-12-03 13:21] LABS: Pathologist Review Reviewed
== END 2018-12-02 13:55 | disposition hospice, inpatient (51) | DRG 871 ==
LOC: ED 15:29 → PCU 15:48
PROVIDERS: Admitting Provider Hospitalist; Emergency Provider Emergency Medicine; Family Provider Family Medicine; PCP Family Medicine; Visit Provider Student in an Organized Health Care Education/Training Program
DX: A41.9 Sepsis, unspecified organism (principal); D61.810 Antineoplastic chemotherapy induced pancytopenia; C7A.1 Malignant poorly differentiated neuroendocrine tumors; K56.7 Ileus, unspecified; R18.0 Malignant ascites; T45.1X5A Adverse effect of antineoplastic and immunosuppressive drugs, initial encounter; D70.1 Agranulocytosis secondary to cancer chemotherapy; R32 Unspecified urinary incontinence; Z90.49 Acquired absence of other specified parts of digestive tract; Z51.5 Encounter for palliative care; R11.2 Nausea with vomiting, unspecified; Z66 Do not resuscitate
CPT/HCPCS: 36415; 74022; 74176; 80053; 83605; 85025; 87040; 87077; 87149; 87186; 94640; 94667; 99284; J7030; J7040; J7050; A4216; J2405; J3490